=== PATIENT | male | born 1980 | race Caucasian/White ===

== ENCOUNTER → 2016-08-30 | Outpatient (CLI) | payer OTHER ==
[~2016-08-30] MED LIST: ALBU18002 INH; ASPI81TA28 PO; ATOR-22 PO; BUPR-79 PO; BUPR100T8 PO; CANA1TAB5 PO; CITA40TA4 PO; HALO2TAB PO; INSDGIPEN SC; INSDGIPEN SQ; INSU3INJ3 SQ; LISI20TA3 PO; NVLG SQ; TOPI100T20 PO; TRAZ100T29 PO; TRAZ50TA35 PO; [UNRECOGNIZED DRUG - REMARK] PO
[2016-08-30 19:07] LABS: ALT/SGPT 53 U/L (12-78); AST/SGOT 17 U/L (15-37); BLOOD UREA NITROGEN 13 mg/dl (7-18); BUN/CREATININE RATIO 12.5 (10-20); CALCIUM 8.4 mg/dl (8.5-10.1); CARBON DIOXIDE 26 mmol/L (21-32); CHLORIDE 102 mmol/L (98-107); GLUCOSE 240 mg/dl (70-99); POTASSIUM 4.3 mmol/L (3.5-5.1); SODIUM 136 mmol/L (136-145)
[2016-08-30 19:18] LABS: ALB/GLOB RATIO 0.9 (0.9-2); ALKALINE PHOSPHATASE 86 U/L (45-117); CHOLESTEROL 187 mg/dl (0-200); CHOLESTEROL/HDL RATIO 5.2; HDL CHOLESTEROL 36 mg/dl; LDL CHOLESTEROL CALCULATED 108 mg/dl; TRIGLYCERIDES 213 mg/dl (0-150); VERY LOW DENSITY LIPOPROT CALC 43 mg/dl
[2016-08-31 06:41] LABS: ESTIMATED AVERAGE GLUCOSE 226 mg/dl; HA1C FLAG Normal (Normal)
== END | disposition home or self-care (01) ==
LOC: C.LABPVFM 11:43
PROVIDERS: ATTEND Nurse Practitioner Family
DX: E11.9 Type 2 diabetes mellitus without complications (principal); I10 Essential (primary) hypertension; E78.5 Hyperlipidemia, unspecified

== ENCOUNTER 2016-10-01 02:35 | Emergency (ER) | payer OTHER ==
[~2016-10-01] VITALS: Ht 185.4 cm; Wt 200.0 kg
[~2016-10-01 02:35] MED LIST changes: -ASPI81TA28 PO; -ATOR-22 PO; -BUPR100T8 PO; -HALO2TAB PO; -INSDGIPEN SC; -INSU3INJ3 SQ; -LISI20TA3 PO; -TOPI100T20 PO; -TRAZ100T29 PO; -[UNRECOGNIZED DRUG - REMARK] PO
[2016-10-01 02:36] VITALS: BP 154/82; PULSE 97; TEMP 36.4; O2SAT 94; Ht 185.4 cm; Wt 200.0 kg
[2016-10-01] MEDS ORDERED: BACITRACIN OINT 15 GM TUBE EXT ONE (03:00)
--- NOTE | 2016-10-01 05:28 | EMERGENCY ROOM VISIT NOTE ---
History First contact with patient: 02:44 Chief Complaint: HAND PAIN/INJURY Stated Complaint: SOMETHING WRONG WITH HANDS History of Present Illness The patient is a 35 year old male who presents to the Emergency Room with complaints of pain of his hands for the past week. The patient states his hands feel dry and have been cracking. He has not had fever or chills. No drainage or discharge. The patient is currently living at a local homeless longterm, but he does have a car, and will occasionally sleep in his vehicle. He has not done anything himself for his symptoms. He does have a primary care physician, but does not have an appointment yet. He rates his discomfort a / 10. Review of Systems More than 10 systems were reviewed and otherwise negative with the exception of history of present illness. Past Medical/Surgical History Medical Problems: (1) DEPRESSIVE DISORDER NEC (2) DIAB MARGAUX WO COMPL, TYPE II OR UNSPEC TYPE, NOT UNCNTRLD (3) HYPERTENSION NOS (4) Hypothyroidism (5) MORBID OBESITY (6) Sleep apnea (7) URIN TRACT INFECTION NOS Family History Depression Social History Smoking Status: Current Every Day Smoker Alcohol Use: none Drug Use: none Marital Status: Housing Status: lives alone Occupation Status: unemployed Current/Historical Medications Scheduled Atorvastatin (Lipitor), 20 MG PO DAILY Bupropion (Wellbutrin Sr), 150 MG PO DAILY Canagliflozin-Metformin HCl (Invokamet 50-500 mg), 1 TAB PO DAILY Citalopram (Citalopram Hydrobromide), 40 MG PO DAILY Insulin Aspart (Novolog), 20 UNITS SQ AC Insulin Glargine (Lantus Solostar), 20 UNITS SQ BID Lisinopril (Prinivil), 20 MG PO DAILY Topiramate (Topamax), 100 MG PO BID Scheduled PRN Albuterol Sulfate (Proair Respiclick), 2 PUFFS INH Q4H PRN for SOB/Wheezing Trazodone Hcl (Trazodone), 50 MG PO HS PRN for Insomnia Allergies Coded Allergies: Penicillins (Verified Allergy, Unknown, 10/01/16) Physical Exam Vital Signs Date Time Temp Pulse Resp B/P Pulse Ox O2 Delivery O2 Flow Rate FiO2 10/01/16 02:36 36.4 97 18 154/82 94 Room Air Pain Rating (0-10): 0 Physical Exam VITALS: Vitals are noted on the nurse's note and reviewed by myself. Vital signs stable. GENERAL: Well-developed, well-nourished, obese white male, who is in no acute distress and resting comfortably. Patient is cooperative with the examination. HEAD: Normocephalic atraumatic. HEART: Regular rate and rhythm without murmurs gallops or rubs. LUNGS: Clear to auscultation bilaterally without wheezes, rales or rhonchi. No retractions or accessory muscle use. SKIN: The skin along the posterior aspect of both hands is dry and with multiple excoriations. There is no obvious drainage or discharge. No cellulitis. No burrows or tunnels. Palms are without significant findings. No foreign body or evidence of infection between the fingers. No foreign bodies. Medical Decision & Procedures Medications Administered Medications (Trade) Dose Ordered Sig/Paulette Route Start Time Stop Time Status Last Admin Dose Admin Bacitracin (Bacitracin Oint) 1 appln NOW ONCE EXT 10/01/16 03:00 10/01/16 03:01 DC 10/01/16 03:00 1 APPLN ED Course Physical exam and history were performed. Nursing notes and EMR were reviewed. Patient appears to have hand pain for the past week. On examination the patient 's hands are dry, but are without other significant findings. The patient will be given bacitracin ointment here, as well as instructions to use this for the next several days. I do recommend he follow with his primary care physician for further care and management. The patient is homeless, and I did offer him case management services, but he declined. The patient has a safe place to stay at the longterm, and is very comfortable with going home. This seems reasonable and the patient was otherwise invited back to the ER with any new, worsening, or concerning symptoms. The chart was completed utilizing [employer] Speech Voice Recognition Software. Grammatical errors, random word insertions, pronoun errors, and incomplete sentences are an occasional consequence of this system due to software limitations, ambient noise, and hardware issues. Any formal questions or concerns about the content, text, or information contained within the body of this dictation should be directly addressed to the provider for clarification. . Medical Decision Differential diagnosis includes, but is not limited to: Cellulitis, abscess, scabies, infection, dry hands, and others Impression Primary Impression: Hand pain Departure Information Dispostion Home / Self-Care Condition GOOD Forms HOME CARE DOCUMENTATION FORM, IMPORTANT VISIT INFORMATION Patient Instructions My [facility] Additional Instructions You were seen and evaluated today on an emergency basis only. This is not a substitute for, or an effort to provide, complete comprehensive medical care. It is not possible to recognize and treat all injuries or illnesses in a single emergency department visit. For this reason it is recommended that you followup with your primary care physician next week for ongoing care and evaluation. Apply bacitracin ointment 2-3 times daily to your hands for additional relief of symptoms. You are welcome to return to the emergency department anytime with new, worsening, or concerning symptoms.
[2016-10-20] MEDS ORDERED: INSDGIPEN SQ (11:49)
[2017-01-26] MEDS ORDERED: TOPI100T20 PO (07:17)
[2017-01-26] MEDS ORDERED: LISI20TA3 PO (07:18)
[2017-01-26] MEDS ORDERED: ATOR-22 PO (07:24)
[2017-01-26] MEDS ORDERED: TRAZ100T29 PO (08:33)
[2017-01-26] MEDS ORDERED: BUPR100T8 PO (08:33)
== END 2016-10-01 03:20 | disposition home or self-care (01) ==
LOC: C.EDB 02:36
DX: M79.641 Pain in right hand (principal); M79.642 Pain in left hand; F17.200 Nicotine dependence, unspecified, uncomplicated; F32.9 Major depressive disorder, single episode, unspecified; E11.9 Type 2 diabetes mellitus without complications; I10 Essential (primary) hypertension; E03.9 Hypothyroidism, unspecified; E66.01 Morbid (severe) obesity due to excess calories; G47.30 Sleep apnea, unspecified; Z79.4 Long term (current) use of insulin

== ENCOUNTER 2016-10-19 08:00 | Inpatient (IN) | payer OTHER ==
[~2016-10-19] VITALS: Ht 188 cm; Wt 197.7 kg
[~2016-10-19 08:00] MED LIST changes: +INSULIN ASPART 100 UNITS/ML 3 ML PEN SC ONE
[2016-10-19] MEDS ORDERED: SODIUM CHLORIDE 0.9% 1000ML 1,000 ML IV STA (08:23)
--- NOTE | 2016-10-19 08:28 | EMERGENCY ROOM VISIT NOTE ---
History First contact with patient: : Chief Complaint: ILLNESS Stated Complaint: SORE THROAT, PAIN IN UPPER LEG, WEAKNESS History of Present Illness The patient is a 35 year old male who presents to the Emergency Room with complaints of sore throat and generalized malaise. The patient states that yesterday he noticed a sore throat that is worse with swallowing. He reports a dry cough. The patient states he feels generalized malaise and weakness. He also complains of left medial thigh pain. The patient has been staying at [facility] and is currently homeless. The patient states he saw his family doctor on Saturday and he states that his blood sugar was 424. He did not have any changes made in his medications. The patient denies any fever, neck pain, neck stiffness, headache. He denies any pain in his chest or trouble breathing. He states he has abdominal pain, but denies nausea or vomiting. The patient states he feels as though he needs to be admitted to the hospital. He states that he is staying at a homeless [facility] but needs help with housing. He denies any suicidal or homicidal ideation. He states he is taking his medications. He does not feel he needs an evaluation with mental health. Review of Systems A 10 system review of systems was completed with positives and pertinent negatives listed in the HPI. Past Medical/Surgical History Medical Problems: (1) DEPRESSIVE DISORDER NEC (2) DIAB MARGAUX WO COMPL, TYPE II OR UNSPEC TYPE, NOT UNCNTRLD (3) DKA, type 2 (4) HYPERTENSION NOS (5) Hypothyroidism (6) MORBID OBESITY (7) Sleep apnea (8) URIN TRACT INFECTION NOS Family History Depression Social History Smoking Status: Current Every Day Smoker Alcohol Use: none Drug Use: none Marital Status: Housing Status: lives alone Occupation Status: unemployed Current/Historical Medications Scheduled Atorvastatin (Lipitor), 20 MG PO DAILY Bupropion (Wellbutrin Sr), 100 MG PO BID Canagliflozin-Metformin HCl (Invokamet 50-500 mg), 1 TAB PO DAILY Citalopram (Citalopram Hydrobromide), 40 MG PO DAILY Insulin Aspart (Novolog), 26 UNITS SQ AC Insulin Glargine (Lantus Solostar), 20 UNITS SQ BID Lisinopril (Prinivil), 20 MG PO DAILY Topiramate (Topamax), 100 MG PO BID Scheduled PRN Albuterol Sulfate (Proair Respiclick), 2 PUFFS INH Q4H PRN for SOB/Wheezing Trazodone Hcl (Trazodone), 100 MG PO HS PRN for Insomnia Allergies Coded Allergies: Penicillins (Verified Allergy, Unknown, 10/01/16) Physical Exam Vital Signs Date Time Temp Pulse Resp B/P Pulse Ox O2 Delivery O2 Flow Rate FiO2 10/19/16 11:20 74 18 142/81 95 Room Air 10/19/16 10:07 71 18 124/81 93 Room Air 10/19/16 08:10 36.9 88 18 128/86 93 Room Air Physical Exam VITALS: Vitals are noted on the nurse's note and reviewed by myself. Vital signs stable. The patient is afebrile. GENERAL: This is a 35-year-old male, obese and unkempt, in no acute distress, nondiaphoretic, well-developed well-nourished. SKIN: The skin was without rashes, erythema, edema, or bruising. There is no tenting of the skin. Capillary reflex less than 2 seconds. HEAD: Normocephalic atraumatic. EARS: External auditory canals clear, tympanic membranes pearly cotto without erythema or effusion bilaterally. EYES: Pupils equal round and reactive to light and accommodation. Conjunctivae without injection, sclerae without icterus. Extraocular movements intact. NOSE: Patent, turbinates without inflammation or discharge. MOUTH: Mucous membranes moist. Tonsils are bilaterally enlarged. Pharynx without erythema or exudate. Uvula midline. Airway patent. Tongue does not deviate. NECK: Supple without nuchal rigidity. No lymphadenopathy. No thyromegaly. Cervical spine is nontender. No JVD. HEART: Regular rate and rhythm without murmurs gallops or rubs. LUNGS: Clear to auscultation bilaterally without wheezes, rales or rhonchi. No retractions or accessory muscle use. ABDOMEN: Positive bowel sounds x 4.Soft, nontender, without masses or organomegaly. MUSCULOSKELETAL: No muscle atrophy, erythema, or edema noted. Full range of motion without joint tenderness in all extremities. Normal gait. Strength 5/5 throughout. NEURO: Patient was alert and oriented to person place and time. No focal neurological deficits. Medical Decision & Procedures ER Provider Diagnostic Interpretation: CHEST 2 VIEWS ROUTINE CLINICAL HISTORY: Cough. COMPARISON STUDY: Chest radiograph January 13, 2013. FINDINGS: Lung volumes are normal. Lungs are clear. No pneumothorax or pleural effusion is present. Cardiac size is normal. Mediastinal contours are normal. There is no evidence of pulmonary edema. IMPRESSION: No acute cardiopulmonary findings. LEFT LOWER EXTREMITY VENOUS DOPPLER CLINICAL HISTORY: Left leg pain. COMPARISON STUDY: Left lower extremity venous Doppler August 26, 2008. TECHNIQUE: Sonography of the deep venous system of the left lower extremity was performed. Compression and augmentation were evaluated. FINDINGS: This exam was compromised by suboptimal penetration. The common femoral, superficial femoral and popliteal veins were compressible. Augmentation was normal. Flow was shown within the deep calf vessels. IMPRESSION: Study compromised by suboptimal penetration but no evidence of deep venous thrombus within the left lower extremity. Laboratory Results 10/19/16 08:40 Red Blood Count 5.44, Mean Corpuscular Volume 83.5, Mean Corpuscular Hemoglobin 29.8, Mean Corpuscular Hemoglobin Concent 35.7, Mean Platelet Volume 10.0, Neutrophils (%) (Auto) 62.8, Lymphocytes (%) (Auto) 29.8, Monocytes (%) (Auto) 5.7, Eosinophils (%) (Auto) 1.0, Basophils (%) (Auto) 0.4, Neutrophils # (Auto) 4.63, Lymphocytes # (Auto) 2.19, Monocytes # (Auto) 0.42, Eosinophils # (Auto) 0.07, Basophils # (Auto) 0.03 Test 10/19/16 08:40 10/19/16 08:50 10/19/16 09:40 White Blood Count 7.36 K/uL (4.8-10.8) Red Blood Count 5.44 M/uL (4.7-6.1) Hemoglobin 16.2 g/dL (14.0-18.0) Hematocrit 45.4 % (42-52) Mean Corpuscular Volume 83.5 fL (80-100) Mean Corpuscular Hemoglobin 29.8 pg (25-34) Mean Corpuscular Hemoglobin Concent 35.7 g/dl (32-36) Platelet Count 162 K/uL (130-400) Mean Platelet Volume 10.0 fL (7.4-10.4) Neutrophils (%) (Auto) 62.8 % Lymphocytes (%) (Auto) 29.8 % Monocytes (%) (Auto) 5.7 % Eosinophils (%) (Auto) 1.0 % Basophils (%) (Auto) 0.4 % Neutrophils # (Auto) 4.63 K/uL (1.4-6.5) Lymphocytes # (Auto) 2.19 K/uL (1.2-3.4) Monocytes # (Auto) 0.42 K/uL (0.11-0.59) Eosinophils # (Auto) 0.07 K/uL (0-0.5) Basophils # (Auto) 0.03 K/uL (0-0.2) RDW Standard Deviation 42.7 fL (36.4-46.3) RDW Coefficient of Variation 14.0 % (11.5-14.5) Immature Granulocyte % (Auto) 0.3 % Immature Granulocyte # (Auto) 0.02 K/uL (0.00-0.02) Total Bilirubin 0.5 mg/dl (0.2-1) Aspartate Amino Transf (AST/SGOT) 35 U/L (15-37) Alanine Aminotransferase (ALT/SGPT) 80 U/L (12-78) Alkaline Phosphatase 82 U/L (45-117) Troponin I < 0.015 ng/ml (0-0.045) Total Protein 7.2 gm/dl (6.4-8.2) Albumin 3.5 gm/dl (3.4-5.0) Globulin 3.7 gm/dl (2.5-4.0) Albumin/Globulin Ratio 0.9 (0.9-2) Lipase 1385 U/L (73-393) Chemistry Specimen Hemolysis Influenza Type A Antigen Neg for Influ A (NEG) Influenza Type B Antigen Neg for Influ B (NEG) Urine Color YELLOW Urine Appearance CLEAR (CLEAR) Urine pH 6.5 (4.5-7.5) Urine Specific [place] 1.034 (1.000-1.030) Urine Protein NEG (NEG) Urine Glucose (UA) 3+ (NEG) Urine Ketones NEG (NEG) Urine Occult Blood NEG (NEG) Urine Nitrite NEG (NEG) Urine Bilirubin NEG (NEG) Urine Urobilinogen NEG (NEG) Urine Leukocyte Esterase NEG (NEG) Prothrombin Time 9.6 SECONDS (9.0-12.0) Prothromb Time International Ratio 0.9 (0.9-1.1) Medications Administered Medications (Trade) Dose Ordered Sig/Paulette Route Start Time Stop Time Status Last Admin Dose Admin Sodium Chloride (Nss 1000ml) 1,000 ml @ 999 mls/hr Q1H1M STAT IV 10/19/16 08:23 10/19/16 09:23 DC 10/19/16 08:53 999 MLS/HR Insulin Human Regular (novoLIN-R U-100 PER UNIT) 5 units NOW STAT IV 10/19/16 08:44 10/19/16 08:46 DC 10/19/16 08:57 5 UNITS Procedure The patient was monitored on a ekg monitor. They maintained a normal sinus rhythm without ectopy. ED Course The patient was seen and examined. Previous visits were reviewed. The patient does not have a fever or leukocytosis. He does not have any significant electrolyte abnormalities. His glucose was elevated at 436. His anion gap was 12. His carbon dioxide was within normal limits. ALT was 80. Lipase was elevated at 1385. Beta hydroxybutyric acid was elevated at 3.16. Urinalysis reveals glucosuria. Flu was negative. Strep was negative. Chest x-ray was negative for acute findings Ultrasound of the left lower extremity was negative for DVT The patient was given 5 units IV insulin and his glucose slightly improved He was hydrated with normal saline 1 L The patient presents with multiple complaints. He reports chronic abdominal pain. He reports generalized fatigue and malaise. He was found to have pancreatitis with an elevated lipase. He is also hyperglycemic with positive serum ketones. The patient would benefit from further evaluation and management in the hospital. I discussed the case with the [facility] hospitalist service and they will evaluate the patient. The patient was also seen and examined by who agrees with the assessment and treatment plan. Medical Decision DIFFERENTIAL DIAGNOSIS: Hepatitis, cholecystitis, cholangitis, biliary colic, pancreatitis, pneumonia, subdiaphragmatic abscess, appendicitis, inguinal hernia , nephrolithiasis, inflammatory bowel disease, mesenteric adenitis, peptic ulcer disease, GERD, gastritis, pancreatitis, myocardial infarction, pericarditis, ruptured aortic aneurysm, appendicitis, gastroenteritis, bowel obstruction, splenic infarct, diverticulitis, mesenteric ischemia, metabolic, peritonitis, among others. Impression Primary Impression: Hyperglycemia Additional Impression: Pancreatitis Departure Information Referrals Chiquis Roche (PCP) Patient Instructions My [facility] Problem Qualifiers
[2016-10-19] MEDS ORDERED: NovoLIN-R INSULIN PER UNIT CHARGE IV STA (08:44)
[2016-10-19 08:52] LABS: BASO % 0.4 %; BASO ABS # 0.03 K/uL (0-0.2); COMPLETE YES; HEMATOCRIT 45.4 % (42-52); IG% 0.3 %; LYMPH % 29.8 %; LYMPH ABS # 2.19 K/uL (1.2-3.4); MEAN CELL VOLUME 83.5 fL (80-100); MEAN CORPUSCULAR HEMOGLOBIN 29.8 pg (25-34); MEAN CORPUSCULAR HGB CONC 35.7 g/dl (32-36); MONO % 5.7 %; NEUT % 62.8 %; PLATELET COUNT 162 K/uL (130-400); RED BLOOD COUNT 5.44 M/uL (4.7-6.1); WHITE BLOOD COUNT 7.36 K/uL (4.8-10.8)
[2016-10-19 09:12] LABS: MANUAL MICROSCOPIC REQUIRED? NO; REVIEW REQ? NO; URINE APPEARANCE CLEAR (CLEAR); URINE BILIRUBIN NEG (NEG); URINE COLOR YELLOW; URINE NITRITE NEG (NEG); URINE PH 6.5 (4.5-7.5); URINE SPECIFIC GRAVITY 1.034 (1.000-1.030); UROBILINOGEN NEG (NEG); ZZUR CULT IF INDIC CLEAN CATCH NO
[2016-10-19 09:16] LABS: ALKALINE PHOSPHATASE 82 U/L (45-117); ALT/SGPT 80 U/L (12-78); AST/SGOT 35 U/L (15-37); BLOOD UREA NITROGEN 15 mg/dl (7-18); BUN/CREATININE RATIO 12.7 (10-20); CALCIUM 8.4 mg/dl (8.5-10.1); CARBON DIOXIDE 22 mmol/L (21-32); CHLORIDE 98 mmol/L (98-107); GLUCOSE 456 mg/dl (70-99); POTASSIUM 4.5 mmol/L (3.5-5.1); SODIUM 132 mmol/L (136-145)
[2016-10-19 09:17] LABS: ALB/GLOB RATIO 0.9 (0.9-2)
[2016-10-19 09:30] LABS: BETA-HYDROXYBUTYRATE 3.16 mg/dL (0.2-2.81)
--- NOTE | 2016-10-19 09:30 | DIAGNOSTIC IMAGING REPORT ---
CHEST 2 VIEWS ROUTINE CLINICAL HISTORY: Cough. COMPARISON STUDY: Chest radiograph January 13, 2013. FINDINGS: Lung volumes are normal. Lungs are clear. No pneumothorax or pleural effusion is present. Cardiac size is normal. Mediastinal contours are normal. There is no evidence of pulmonary edema. IMPRESSION: No acute cardiopulmonary findings. Electronically signed by: Aris Barton M.D. 10/19/2016 9:29 AM Dictated Date/Time: 10/19/2016 9:28 AM
[2016-10-19] MEDS ORDERED: TRAZODONE HCL 100 MG TAB PO PRN (12:00)
[2016-10-19] MEDS ORDERED: ONDANSETRON INJ 2 MG/ML 2 ML VIAL IV PRN (12:00)
[2016-10-19] MEDS ORDERED: HydrALAZINE HCL 20 MG/ML VIAL IV. PRN (12:00)
[2016-10-19] MEDS ORDERED: MODERATE STRESS LEVEL ONE (12:00)
[2016-10-19] MEDS ORDERED: ACETAMINOPHEN 325 MG TAB PO PRN (12:00)
[2016-10-19] MEDS ORDERED: DKA GOAL RANGE 150-250 mg/dl 1 EA ONE (12:00)
--- NOTE | 2016-10-19 12:00 | DIAGNOSTIC IMAGING REPORT ---
LEFT LOWER EXTREMITY VENOUS DOPPLER CLINICAL HISTORY: Left leg pain. COMPARISON STUDY: Left lower extremity venous Doppler August 26, 2008. TECHNIQUE: Sonography of the deep venous system of the left lower extremity was performed. Compression and augmentation were evaluated. FINDINGS: This exam was compromised by suboptimal penetration. The common femoral, superficial femoral and popliteal veins were compressible. Augmentation was normal. Flow was shown within the deep calf vessels. IMPRESSION: Study compromised by suboptimal penetration but no evidence of deep venous thrombus within the left lower extremity. Electronically signed by: Aris Barton M.D. 10/19/2016 11:59 AM Dictated Date/Time: 10/19/2016 11:58 AM
[2016-10-19] MEDS ORDERED: INSULIN IV INFUSION PROTOCOL SCH (12:15)
[2016-10-19] MEDS ORDERED: OPTIRAY 320 IV PRN (12:30)
--- NOTE | 2016-10-19 12:47 | History and Physical ---
History & Physical Date & Time of Service: Oct 19, 2016 at 11:57 Chief Complaint: Sore Throat, Pain In Upper Leg, Weakness Primary Care Physician: Chiquis Roche History of Present Illness Source: patient, hospital records This patient is a 35-year-old male with a history of morbid obesity and type 2 diabetes a presents emergency department complaining of generalized weakness, malaise, sore throat and dry cough. The patient saw his primary care physician on Saturday. His blood sugar was severely elevated in the 400s. The patient reports taking his medications as directed however he is recently homeless and is living at a homeless long term. He is going through divorce with his . He denies any fever or chills. No nausea or vomiting. He denies any chest pain or pressure. No shortness of breath. He does report abdominal pain in the left upper to mid abdomen. He reports this has been intermittent over the last several years. He denies any history of pancreatitis. His lipase is found to be significantly elevated in the ED at 1385. He denies any significant alcohol intake. The patient also admits to constipation. Last bowel movement was 2 days ago. The patient is also complaining of upper left thigh pain. He denies any injury. He is unsure of how long it has been going on. Patient is a poor historian. The HPI is limited. Past Medical/Surgical History Medical Problems: (1) DEPRESSIVE DISORDER NEC Status: Chronic (2) DIAB MARGAUX WO COMPL, TYPE II OR UNSPEC TYPE, NOT UNCNTRLD Status: Chronic (3) HYPERTENSION NOS Status: Resolved (4) Hypothyroidism Status: Resolved (5) MORBID OBESITY Status: Chronic (6) Sleep apnea Status: Chronic (7) URIN TRACT INFECTION NOS Status: Resolved Family History Depression Social History Smoking Status: Current Every Day Smoker Alcohol Use: occasionally Drug Use: none Marital Status: other () Housing status: other (living at a homeless long term) Occupational Status: unemployed Immunizations History of Influenza Vaccine: Yes Influenza Vaccine Date: Jun 28, 2008 History of Tetanus Vaccine?: Yes History of Pneumococcal: No History of Hepatitis B Vaccine: Unknown Multi-Drug Resistant Organisms History of MDRO: No Allergies Coded Allergies: Penicillins (Verified Allergy, Unknown, 10/01/16) Home Medications Scheduled Atorvastatin (Lipitor), 20 MG PO DAILY Bupropion (Wellbutrin Sr), 100 MG PO BID Canagliflozin-Metformin HCl (Invokamet 50-500 mg), 1 TAB PO DAILY Citalopram (Citalopram Hydrobromide), 40 MG PO DAILY Insulin Aspart (Novolog), 26 UNITS SQ AC Insulin Glargine (Lantus Solostar), 20 UNITS SQ BID Lisinopril (Prinivil), 20 MG PO DAILY Topiramate (Topamax), 100 MG PO BID Scheduled PRN Albuterol Sulfate (Proair Respiclick), 2 PUFFS INH Q4H PRN for SOB/Wheezing Trazodone Hcl (Trazodone), 100 MG PO HS PRN for Insomnia Review of Systems 10 system review performed and negative unless noted in HPI or below Physical Exam Vital Signs Date Time Temp Pulse Resp B/P Pulse Ox O2 Delivery O2 Flow Rate FiO2 10/19/16 11:20 74 18 142/81 95 Room Air 10/19/16 10:07 71 18 124/81 93 Room Air 10/19/16 08:10 36.9 88 18 128/86 93 Room Air General Appearance: no apparent distress, + pertinent finding (morbidly obese) Head: normocephalic Eyes: PERRL, EOMI ENT: + pertinent finding (mild erythema noted over the tonsils. No exudate) Neck: no adenopathy, no JVD Respiratory/Chest: lungs clear Cardiovascular: regular rate, rhythm Abdomen/GI: soft, + pertinent finding (mild tenderness to palpation noted in the left upper quadrant. Bowel sounds present, but hypoactive.) Extremities/Musculoskelatal: no calf tenderness, no pedal edema Neurologic/Psych: no motor/sensory deficits, oriented x 3 Skin: warm/dry Diagnostics Laboratory Results 10/19/16 08:40 Red Blood Count 5.44, Mean Corpuscular Volume 83.5, Mean Corpuscular Hemoglobin 29.8, Mean Corpuscular Hemoglobin Concent 35.7, Mean Platelet Volume 10.0, Neutrophils (%) (Auto) 62.8, Lymphocytes (%) (Auto) 29.8, Monocytes (%) (Auto) 5.7, Eosinophils (%) (Auto) 1.0, Basophils (%) (Auto) 0.4, Neutrophils # (Auto) 4.63, Lymphocytes # (Auto) 2.19, Monocytes # (Auto) 0.42, Eosinophils # (Auto) 0.07, Basophils # (Auto) 0.03 Test 10/19/16 08:40 10/19/16 08:50 10/19/16 12:00 10/19/16 12:09 White Blood Count 7.36 K/uL (4.8-10.8) Red Blood Count 5.44 M/uL (4.7-6.1) Hemoglobin 16.2 g/dL (14.0-18.0) Hematocrit 45.4 % (42-52) Mean Corpuscular Volume 83.5 fL (80-100) Mean Corpuscular Hemoglobin 29.8 pg (25-34) Mean Corpuscular Hemoglobin Concent 35.7 g/dl (32-36) Platelet Count 162 K/uL (130-400) Mean Platelet Volume 10.0 fL (7.4-10.4) Neutrophils (%) (Auto) 62.8 % Lymphocytes (%) (Auto) 29.8 % Monocytes (%) (Auto) 5.7 % Eosinophils (%) (Auto) 1.0 % Basophils (%) (Auto) 0.4 % Neutrophils # (Auto) 4.63 K/uL (1.4-6.5) Lymphocytes # (Auto) 2.19 K/uL (1.2-3.4) Monocytes # (Auto) 0.42 K/uL (0.11-0.59) Eosinophils # (Auto) 0.07 K/uL (0-0.5) Basophils # (Auto) 0.03 K/uL (0-0.2) RDW Standard Deviation 42.7 fL (36.4-46.3) RDW Coefficient of Variation 14.0 % (11.5-14.5) Immature Granulocyte % (Auto) 0.3 % Immature Granulocyte # (Auto) 0.02 K/uL (0.00-0.02) Est Creatinine Clear Calc Drug Dose 156.2 ml/min Total Bilirubin 0.5 mg/dl (0.2-1) Aspartate Amino Transf (AST/SGOT) 35 U/L (15-37) Alanine Aminotransferase (ALT/SGPT) 80 U/L (12-78) Alkaline Phosphatase 82 U/L (45-117) Troponin I < 0.015 ng/ml (0-0.045) Total Protein 7.2 gm/dl (6.4-8.2) Albumin 3.5 gm/dl (3.4-5.0) Globulin 3.7 gm/dl (2.5-4.0) Albumin/Globulin Ratio 0.9 (0.9-2) Lipase 1385 U/L (73-393) Beta-Hydroxybutyric Acid 3.16 mg/dL (0.2-2.81) Chemistry Specimen Hemolysis Influenza Type A Antigen Neg for Influ A (NEG) Influenza Type B Antigen Neg for Influ B (NEG) Urine Color YELLOW Urine Appearance CLEAR (CLEAR) Urine pH 6.5 (4.5-7.5) Urine Specific [place] 1.034 (1.000-1.030) Urine Protein NEG (NEG) Urine Glucose (UA) 3+ (NEG) Urine Ketones NEG (NEG) Urine Occult Blood NEG (NEG) Urine Nitrite NEG (NEG) Urine Bilirubin NEG (NEG) Urine Urobilinogen NEG (NEG) Urine Leukocyte Esterase NEG (NEG) Test 10/19/16 12:19 10/19/16 12:39 Bedside Glucose 273 mg/dl (70-99) Results Past 24 Hours Test 10/19/16 08:28 10/19/16 08:40 10/19/16 08:50 10/19/16 10:06 Range/Units Bedside Glucose 436 370 70-99 mg/dl White Blood Count 7.36 4.8-10.8 K/uL Red Blood Count 5.44 4.7-6.1 M/uL Hemoglobin 16.2 14.0-18.0 g/dL Hematocrit 45.4 42-52 % Mean Corpuscular Volume 83.5 80-100 fL Mean Corpuscular Hemoglobin 29.8 25-34 pg Mean Corpuscular Hemoglobin Concent 35.7 32-36 g/dl Platelet Count 162 130-400 K/uL Mean Platelet Volume 10.0 7.4-10.4 fL Neutrophils (%) (Auto) 62.8 % Lymphocytes (%) (Auto) 29.8 % Monocytes (%) (Auto) 5.7 % Eosinophils (%) (Auto) 1.0 % Basophils (%) (Auto) 0.4 % Neutrophils # (Auto) 4.63 1.4-6.5 K/uL Lymphocytes # (Auto) 2.19 1.2-3.4 K/uL Monocytes # (Auto) 0.42 0.11-0.59 K/uL Eosinophils # (Auto) 0.07 0-0.5 K/uL Basophils # (Auto) 0.03 0-0.2 K/uL RDW Standard Deviation 42.7 36.4-46.3 fL RDW Coefficient of Variation 14.0 11.5-14.5 % Immature Granulocyte % (Auto) 0.3 % Immature Granulocyte # (Auto) 0.02 0.00-0.02 K/uL Sodium Level 132 136-145 mmol/L Potassium Level 4.5 3.5-5.1 mmol/L Chloride Level 98 98-107 mmol/L Carbon Dioxide Level 22 21-32 mmol/L Anion Gap 12.0 3-11 mmol/L Blood Urea Nitrogen 15 7-18 mg/dl Creatinine 1.20 0.60-1.40 mg/dl Est Creatinine Clear Calc Drug Dose 156.2 ml/min Estimated GFR () 89.0 Estimated GFR (Non- 76.8 BUN/Creatinine Ratio 12.7 10-20 Random Glucose 456 70-99 mg/dl Calcium Level 8.4 8.5-10.1 mg/dl Total Bilirubin 0.5 0.2-1 mg/dl Aspartate Amino Transf (AST/SGOT) 35 15-37 U/L Alanine Aminotransferase (ALT/SGPT) 80 12-78 U/L Alkaline Phosphatase 82 45-117 U/L Troponin I < 0.015 0-0.045 ng/ml Total Protein 7.2 6.4-8.2 gm/dl Albumin 3.5 3.4-5.0 gm/dl Globulin 3.7 2.5-4.0 gm/dl Albumin/Globulin Ratio 0.9 0.9-2 Lipase 1385 73-393 U/L Beta-Hydroxybutyric Acid 3.16 0.2-2.81 mg/dL Chemistry Specimen Hemolysis Influenza Type A Antigen Neg for Influ A NEG Influenza Type B Antigen Neg for Influ B NEG Urine Color YELLOW Urine Appearance CLEAR CLEAR Urine pH 6.5 4.5-7.5 Urine Specific [place] 1.034 1.000-1.030 Urine Protein NEG NEG Urine Glucose (UA) 3+ NEG Urine Ketones NEG NEG Urine Occult Blood NEG NEG Urine Nitrite NEG NEG Urine Bilirubin NEG NEG Urine Urobilinogen NEG NEG Urine Leukocyte Esterase NEG NEG Microbiology Results 10/19/16 Group A Streptococcus Screen - Final, Resulted SPECIMEN NEGATIVE FOR GROUP A BETA ST... 10/19/16 Group A Streptococcus Screen (ANNE MARIE), Resulted Pending CXR normal Impression Assessment and Plan 35-year-old male with a history of type 2 diabetes, morbid obesity presents emergency department with upper respiratory symptoms, malaise, abdominal pain and L upper leg pain. Workup in the emergency department reveals an elevated blood sugar at 456. Small anion gap noted at 12. Positive for ketones in the blood. Picture is consistent with mild DKA. Patient also has pancreatitis given an elevated lipase of 1385 DKA in the setting of a type II diabetic and pancreatitis-etiology unclear at this point -Admit to telemetry -Given additional normal saline bolus 1 L. Then convert to NS + 20 mEq KCl @ 150 cc/hr -Insulin gtt -Check ABG -PRP q 4 hr -HgbA1C -CT abd/pelvis-->r/o gallstones, pancreatitis pseudocyst/hemorrhagic pancreatitis -Check triglycerides -r/o other sources of infection: UA, Blood cx, lactic acid Sorethroat/dry cough-Flu neg. ? viral. No PNA on xray. Rapid strep neg L leg pain -f/u LLE US HTN -continue lisinopril 20 mg daily -Hydralazine 10 mg IV q 6 hr PRN Hypothyroidism-? not on meds -Check TSH Hyperlipidemia -Continue atorvastatin 20 mg daily Depression -Continue Citalopram 40 mg daily -Wellbutrin SR 100 mg BID DVT prophylaxis -Lovenox 40 mg subQ daily-->must f/u CT to r/o hemorrhage -TEDs SCDs CODE STATUS -LEVEL I FULL CODE Level of Care Telemetry Resuscitation Status FULL RESUSCITATION VTE Prophylaxis VTE Risk Assessment Done? Y/N: Yes Risk Level: Low Given or contraindicated: Enoxaparin (Lovenox)SQ, T.E.D. Stockings, SCD's
[2016-10-19 12:54] LABS: VEN BLOOD GAS BASE EXCESS 0.8 mmol/L
[2016-10-19] MEDS ORDERED: INSULIN ASPART 100 UNITS/ML 3 ML PEN SC SCH (13:00)
--- NOTE | 2016-10-19 13:01 | DIAGNOSTIC IMAGING REPORT ---
CT OF THE ABDOMEN AND PELVIS WITH CONTRAST CLINICAL HISTORY: Pancreatitis. Lower abdominal pain. COMPARISON STUDY: CT of the abdomen and pelvis March 13, 2013. TECHNIQUE: Following IV administration of 119 mL of Optiray-320, axial images of the abdomen and pelvis were obtained from the lung bases to the proximal femurs. Images were reviewed in the axial, sagittal, and coronal planes. IV contrast was administered without complication. CT DOSE: 1786.89 mGy.cm FINDINGS: Fatty infiltration of the liver is noted. The spleen, adrenal glands and kidneys are unremarkable. There is no hydronephrosis. There is no peripancreatic infiltration. There is no pericholecystic infiltration. There is no biliary or pancreatic ductal dilatation. This exam is compromised by quantum mottle artifact. There is no evidence for a bowel obstruction. The appendix is normal. There is a moderate amount stool within the colon. Skeletal structures are unremarkable. Note is made of a small fat-containing umbilical hernia. There is no ascites. IMPRESSION: 1. Normal CT appearance of the pancreas. This does not exclude the possibility of acute pancreatitis. 2. Fatty liver. 3. Normal appendix. 4. No bowel obstruction. Moderate amount of stool within the colon. Electronically signed by: Aris Barton M.D. 10/19/2016 12:59 PM Dictated Date/Time: 10/19/2016 12:53 PM
[2016-10-19 13:13] LABS: BUN/CREATININE RATIO 13.2 (10-20); CALCIUM 8.4 mg/dl (8.5-10.1); POTASSIUM 4.2 mmol/L (3.5-5.1)
[2016-10-19] MEDS ORDERED: DEXTROSE 50% 50 ML SYR IV PRN (13:15)
[2016-10-19] MEDS ORDERED: INSULIN HUMAN REGULAR IV BOLUS 5 UNIT in SYRINGE 0 ML IV SCH (13:15)
[2016-10-19] MEDS ORDERED: INSULIN REGULAR 250 UNITS in SODIUM CHLORIDE 0.9% 250ML 250 ML IV SCH (13:15)
[2016-10-19] MEDS ORDERED: GLUCOSE 10 TABS/TUBE PO PRN (13:15)
[2016-10-19] MEDS ORDERED: GLUCOSE 40% GEL 15 GM TUBE PO PRN (13:15)
[2016-10-19] MEDS ORDERED: GLUCAGON FOR INJ 1 MG VIAL SQ PRN (13:15)
[2016-10-19 13:24] LABS: BETA-HYDROXYBUTYRATE 4.03 mg/dL (0.2-2.81); THYROID STIMULATING HORMONE 2.71 uIu/ml (0.300-4.500)
[2016-10-19 13:30] VITALS: BP 141/76; PULSE 73; TEMP 36.9; O2SAT 95; Ht 188 cm; Wt 197.7 kg
[2016-10-19] MEDS ORDERED: SODIUM CHLORIDE 0.9% 1000ML 1,000 ML IV ONE (13:30)
[2016-10-19 13:58] LABS: INR 0.9 (0.9-1.1); PROTHROMBIN TIME (PATIENT) 9.6 SECONDS (9.0-12.0)
[2016-10-19] MEDS ORDERED: PIPERACILL/TAZOBAC IV 3.375 GM in DEXTROSE 5% 100ML 100 ML IV SCH (14:00)
[2016-10-19] MEDS ORDERED: PHARMACY GLYCEMIC MGMT CONSULT PRN (14:11)
[2016-10-19] MEDS ORDERED: NURSING VERBAL MED ORDER ONE (14:45)
[2016-10-19] MEDS ORDERED: METRONIDAZOLE 500 MG/ NSS IV SCH (15:00)
[2016-10-19] MEDS: NSS + 20MEQ KCL 1000ML 1,000 ML IV SCH ×2 (15:09→21:45)
--- NOTE | 2016-10-19 15:24 | Pharmacy Progress Note ---
Glycemic Control Intl Consult Date of Service Oct 19, 2016. Scope Glycemic Pharmacist consulted for glycemic control and to write orders per [facility] inpatient glycemic control protocol Objective Weight (Kilograms): 188.400 Accuchecks BSG (last 24hrs): Test 10/19/16 08:28 10/19/16 08:40 10/19/16 10:06 10/19/16 12:19 Bedside Glucose 436 mg/dl (70-99) 370 mg/dl (70-99) 273 mg/dl (70-99) Random Glucose 456 mg/dl (70-99) Test 10/19/16 12:35 10/19/16 13:25 Random Glucose 304 mg/dl (70-99) Bedside Glucose 244 mg/dl (70-99) Laboratory Data (last 24hrs) Test 10/19/16 08:40 10/19/16 12:35 Anion Gap 12.0 mmol/L 9.0 mmol/L BUN/Creatinine Ratio 12.7 13.2 Blood Urea Nitrogen 15 mg/dl 13 mg/dl Creatinine 1.20 mg/dl 1.00 mg/dl Potassium Level 4.5 mmol/L 4.2 mmol/L Sodium Level 132 mmol/L 136 mmol/L White Blood Count 7.36 K/uL Red Blood Count 5.44 M/uL Hemoglobin 16.2 g/dL Hematocrit 45.4 % Mean Corpuscular Volume 83.5 fL Mean Corpuscular Hemoglobin 29.8 pg Mean Corpuscular Hemoglobin Concent 35.7 g/dl Platelet Count 162 K/uL Mean Platelet Volume 10.0 fL Neutrophils (%) (Auto) 62.8 % Lymphocytes (%) (Auto) 29.8 % Monocytes (%) (Auto) 5.7 % Eosinophils (%) (Auto) 1.0 % Basophils (%) (Auto) 0.4 % Neutrophils # (Auto) 4.63 K/uL Lymphocytes # (Auto) 2.19 K/uL Monocytes # (Auto) 0.42 K/uL Eosinophils # (Auto) 0.07 K/uL Basophils # (Auto) 0.03 K/uL Recent Pertinent Medications Outpatient Anti-diabetic Regimen: * Invokamet 50/500mg po daily * Novolog 26 units SC AC * Lantus 20 units SC BID * A1c = 9.5 % on 08/30/16 Risk Factors for Insulin Resistance: * Infection: ciprofloxacin, metronidazole * Diet: T2DM Assessment & Plan ASSESSMENT: * ADA & AACE recommend a goal blood sugar range 140-180 mg/dl for the majority of critically ill & non-critically ill patients. However, more stringent targets may be selected in individual cases. * 35 yo morbidly obese homeless male admitted w URI, hyperglycemia * Was originally ordered insulin gtt, but this was not started as the patient responded well to an IV bolus of regular insulin alone * Will give a one-time dose of Lantus now at slightly higher than home dose as it's unclear if (and unlikely that) patient received AM dose of Lantus * Will continue Lantus based on BSG at/near home dose * Will order Novolog based on total daily dose as weight-based may be too aggressive for this patient 2nd morbid obesity. Will loosen carb ratio slightly as this, too, is aggressive * Will add overnight check PLAN FOR INPATIENT GLYCEMIC CONTROL: * Holding outpatient oral diabetes medications * Basal insulin with LANTUS 25 units SQ x1 then BID based on BSG * 10 units for BSG < 140 mg/dL * 20 units for BSG 140 mg/dL or greater * Correctional Insulin with NOVOLOG / REGULAR per scale ACHS or Q6hrs while NPO - additional check at 0200 * Goal Range: Low 140 mg/dL - High 180 mg/dL * Correction Factor: 15 mg/dL/unit * Nutritional / Prandial insulin per carb ratio of 1 unit per 6 grams CHO consumed * Please note that the plan above was derived based on current level of insulin resistance and hospital stress. These recommendations are appropriate for inpatient admission only. Plan of care upon discharge will need to be reassessed to avoid potential outpatient hypo/hyperglycemia. Thank you.
[2016-10-19 15:38] VITALS: BP 107/66; PULSE 75; TEMP 36.5; O2SAT 95
[2016-10-19] MEDS: ENOXAPARIN 40 MG/0.4 ML SYR SC SCH ×2 (15:45→23:22)
[2016-10-19] MEDS ORDERED: INSULIN GLARGINE SOLOSTAR 100 UNITS/ML 3 ML PEN SC ONE (16:00)
[2016-10-19] MEDS ORDERED: CIPROFLOXACIN 400MG / D5W IV SCH (16:00)
[2016-10-19 16:36] LABS: BUN/CREATININE RATIO 12.9 (10-20); CALCIUM 8.4 mg/dl (8.5-10.1); POTASSIUM 4.1 mmol/L (3.5-5.1)
[2016-10-19] MEDS: INSULIN ASPART 100 UNITS/ML 3 ML PEN SC SCH ×2 (17:07→21:07)
[2016-10-19 20:44] VITALS: BP 106/65; PULSE 75; TEMP 36.4; O2SAT 95
[2016-10-19 20:56] LABS: BUN/CREATININE RATIO 12.9 (10-20); CALCIUM 8.3 mg/dl (8.5-10.1); POTASSIUM 3.9 mmol/L (3.5-5.1)
[2016-10-19] MEDS: TOPIRAMATE 100 MG TAB PO SCH (20:57)
[2016-10-19] MEDS: BuPROPion SR 100 MG TABCR PO SCH (20:57)
[2016-10-19 23:53] VITALS: BP 127/84; PULSE 68; TEMP 36.7; O2SAT 97
[2016-10-20] MEDS ORDERED: AZITHROMYCIN 250 MG TAB PO SCH
[2016-10-20] MEDS: NSS + 20MEQ KCL 1000ML 1,000 ML IV SCH (01:09)
[2016-10-20] MEDS ORDERED: INSULIN ASPART 100 UNITS/ML 3 ML PEN SC ONE (02:00)
[2016-10-20 03:23] VITALS: BP 123/82; PULSE 69; TEMP 36.8; O2SAT 91
[2016-10-20 05:49] LABS: BASO % 0.3 %; BASO ABS # 0.02 K/uL (0-0.2); COMPLETE YES; EOS % 0.9 %; HEMATOCRIT 43.4 % (42-52); IG% 0.2 %; LYMPH % 44.1 %; LYMPH ABS # 2.83 K/uL (1.2-3.4); MEAN CELL VOLUME 85.3 fL (80-100); MEAN CORPUSCULAR HEMOGLOBIN 28.9 pg (25-34); MEAN CORPUSCULAR HGB CONC 33.9 g/dl (32-36); MEAN PLATELET VOLUME 9.9 fL (7.4-10.4); MONO % 5.5 %; PLATELET COUNT 154 K/uL (130-400); RED BLOOD COUNT 5.09 M/uL (4.7-6.1); WHITE BLOOD COUNT 6.42 K/uL (4.8-10.8)
[2016-10-20] MEDS: INSULIN ASPART 100 UNITS/ML 3 ML PEN SC SCH ×2 (07:00→11:00)
[2016-10-20 08:04] VITALS: BP 100/70; PULSE 71; TEMP 36.5; O2SAT 96
[2016-10-20] MEDS: BuPROPion SR 100 MG TABCR PO SCH (08:06)
[2016-10-20] MEDS: ENOXAPARIN 40 MG/0.4 ML SYR SC SCH (08:06)
[2016-10-20] MEDS: TOPIRAMATE 100 MG TAB PO SCH (08:06)
[2016-10-20] MEDS ORDERED: ATORVASTATIN 20 MG TAB PO SCH (09:00)
[2016-10-20] MEDS ORDERED: LISINOPRIL 20 MG TAB PO SCH (09:00)
[2016-10-20] MEDS ORDERED: CITALOPRAM 40 MG TAB PO SCH (09:00)
[2016-10-20] MEDS ORDERED: INSULIN GLARGINE SOLOSTAR 100 UNITS/ML 3 ML PEN SC SCH (09:00)
--- NOTE | 2016-10-20 11:33 | Pharmacy Progress Note ---
Glycemic Control: Progress Nt Date of Service Oct 20, 2016. Scope Glycemic Pharmacist consulted for glycemic control and to write orders per [facility] inpatient glycemic control protocol. Objective Accuchecks BSG (last 24hrs): Test 10/19/16 12:19 10/19/16 12:35 10/19/16 13:25 10/19/16 16:05 Bedside Glucose 273 mg/dl (70-99) 244 mg/dl (70-99) 234 mg/dl (70-99) Random Glucose 304 mg/dl (70-99) Test 10/19/16 16:14 10/19/16 20:25 10/19/16 21:03 10/20/16 01:27 Random Glucose 251 mg/dl (70-99) 224 mg/dl (70-99) Bedside Glucose 196 mg/dl (70-99) 198 mg/dl (70-99) Test 10/20/16 06:38 Bedside Glucose 215 mg/dl (70-99) Laboratory Data (last 24hrs) Test 10/19/16 12:35 10/19/16 16:14 10/19/16 20:25 10/20/16 05:15 Anion Gap 9.0 mmol/L 7.0 mmol/L 7.0 mmol/L BUN/Creatinine Ratio 13.2 12.9 12.9 Blood Urea Nitrogen 13 mg/dl 13 mg/dl 13 mg/dl Creatinine 1.00 mg/dl 1.00 mg/dl 1.00 mg/dl Potassium Level 4.2 mmol/L 4.1 mmol/L 3.9 mmol/L Sodium Level 136 mmol/L 136 mmol/L 137 mmol/L White Blood Count 6.42 K/uL Red Blood Count 5.09 M/uL Hemoglobin 14.7 g/dL Hematocrit 43.4 % Mean Corpuscular Volume 85.3 fL Mean Corpuscular Hemoglobin 28.9 pg Mean Corpuscular Hemoglobin Concent 33.9 g/dl Platelet Count 154 K/uL Mean Platelet Volume 9.9 fL Neutrophils (%) (Auto) 49.0 % Lymphocytes (%) (Auto) 44.1 % Monocytes (%) (Auto) 5.5 % Eosinophils (%) (Auto) 0.9 % Basophils (%) (Auto) 0.3 % Neutrophils # (Auto) 3.15 K/uL Lymphocytes # (Auto) 2.83 K/uL Monocytes # (Auto) 0.35 K/uL Eosinophils # (Auto) 0.06 K/uL Basophils # (Auto) 0.02 K/uL Recent Pertinent Medications Outpatient Anti-diabetic Regimen: * Invokamet 50/500mg po daily * Novolog 26 units SC AC * Lantus 20 units SC BID * A1c = 9.5 % on 08/30/16 The patient is currently receiving: * Basal insulin with LANTUS 25 units SQ x1 10/19 then BID based on BSG * 10 units for BSG < 140 mg/dL * 20 units for BSG 140 mg/dL or greater * Correctional Insulin with NOVOLOG per scale ACHS or Q6hrs while NPO - additional check at 0200 on 10/20 * Goal Range: Low 140 mg/dL - High 180 mg/dL * Correction Factor: 15 mg/dL/unit * Nutritional / Prandial insulin per carb ratio of 1 unit per 6 grams CHO consumed Risk Factors for Insulin Resistance: * Diet: T2DM Assessment & Plan ASSESSMENT: * ADA & AACE recommend a goal blood sugar range 140-180 mg/dl for the majority of critically ill & non-critically ill patients. However, more stringent targets may be selected in individual cases. 10/19/16 * 35 yo morbidly obese homeless male admitted w [facility], hyperglycemia * Was originally ordered insulin gtt, but this was not started as the patient responded well to an IV bolus of regular insulin alone * Will give a one-time dose of Lantus now at slightly higher than home dose as it's unclear if (and unlikely that) patient received AM dose of Lantus * Will continue Lantus based on BSG at/near home dose * Will order Novolog based on total daily dose as weight-based may be too aggressive for this patient 2nd morbid obesity. Will loosen carb ratio slightly as this, too, is aggressive * Will add overnight check 10/20/16 * AM fasting BSG elevated to 215 mg/dL. However, additional Lantus is scheduled to be administered this AM. Does not require change in orders. PLAN FOR INPATIENT GLYCEMIC CONTROL: * Holding outpatient oral diabetes medications * Basal insulin with LANTUS BID based on BSG * 10 units for BSG < 140 mg/dL * 20 units for BSG 140 mg/dL or greater * Correctional Insulin with NOVOLOG per scale ACHS or Q6hrs while NPO - additional check at 0200 * Goal Range: Low 140 mg/dL - High 180 mg/dL * Correction Factor: 15 mg/dL/unit * Nutritional / Prandial insulin per carb ratio of 1 unit per 6 grams CHO consumed * Please note that the plan above was derived based on current level of insulin resistance and hospital stress. These recommendations are appropriate for inpatient admission only. Plan of care upon discharge will need to be reassessed to avoid potential outpatient hypo/hyperglycemia. Thank you.
--- NOTE | 2016-10-20 11:46 | Discharge Instructions ---
Discharge Instructions Date of Service Oct 20, 2016. Admission Reason for Admission: Dka, Type 2 Discharge Discharge Diagnosis / Problem: severe hyperglycemia Discharge Goals Goal(s): Decrease discomfort, Improve function, Increase independence, Improve disease control, Improve nutritional status, Learn about illness, Diagnostic testing, Therapeutic intervention, Prevent Disease Progression, Specific goals Activity Recommendations Activity Limitations: resume your previous activity Lifting Limitations: none Exercise/Sports Limitations: none May Resume Sexual Activity: when tolerated . Instructions / Follow-Up Instructions / Follow-Up you have Hyperglycemia, you need to continue insulin as instructed you have mild pancreatitis, you was on medicine of Canaglifozin/metformin before this admission, I hold this medicine because this medicine may caused Pancreatitis, you should discuss this with your primary care physician - you need to follow up with your primary care physician in 3-5 days to further define care plan of your diabetics - take medication as instructed, never overdose or any misuse, or take with alcohol, because misuse of medicine may cause organ damage or , call your primary care physician if have questions of medicaitons. - call your primary care physician OR go to local emergency room if has any fever/chill, chest pain, shortness of breathing, nausea/vomiting/abdominal pain , facial droop/slurry speech/local weakness, or if has any questions. - fall precaution - diet as instructed - you should understand that it is important to follow up the above instruction , and "not following the above instruction" may cause delayed or missed care of your medical conditions which may cause permanent organ damage and even . Current Hospital Diet Patient's current hospital diet: Diabetes Type 2 Diet Discharge Diet Recommended Diet: Diabetes Type 2 Diet Pending Studies Studies pending at discharge: no Laboratory Results Hemoglobin A1c Test 08/30/16 11:50 Range/Units Estimated Average Glucose 226 mg/dl Hemoglobin A1c 9.5 H 4.5-5.6 % Lipid Panel Test 08/30/16 11:50 10/19/16 12:35 Range/Units Triglycerides Level 213 H 289 H 0-150 mg/dl Cholesterol Level 187 0-200 mg/dl HDL Cholesterol 36 mg/dl Cholesterol/HDL Ratio 5.2 LDL Cholesterol, Calculated 108 mg/dl Medical Emergencies . Who to Call and When: Medical Emergencies: If at any time you feel your situation is an emergency, please call 911 immediately. . Non-Emergent Contact Non-Emergency issues call your: Primary Care Provider . . "Provider Documentation" section prepared by Tal Alvarez. VTE Core Measure Inpt VTE Proph given/why not?: Enoxaparin (Lovenox)GREGG, Taye. Nacho, SCD's
[2016-10-20] MEDS ORDERED: INSDGIPEN SQ (11:49)
[2016-10-20 11:51] VITALS: BP 100/70; PULSE 71; TEMP 36.5; O2SAT 96
--- NOTE | 2016-10-20 12:03 | Discharge Summary ---
Discharge Summary Date of Service Oct 20, 2016. Discharge Summary Admission Date: Oct 19, 2016 at 11:57 Discharge Date: Oct 20, 2016 Discharge Disposition: Home Principal Diagnosis: Hyperglycemia, DMII Problems/Secondary Diagnoses: pancreatitis Immunizations: Have You Had Influenza Vaccine: Yes Influenza Vaccine Date: Jun 28, 2008 History of Tetanus Vaccine?: Yes History of Pneumococcal: No History of Hepatitis B Vaccine: Unknown Consultations: No Medication Reconciliation Continued Medications: Albuterol Sulfate (Proair Respiclick) 108 Mcg/Act Aer 2 PUFFS INH Q4H PRN for SOB/Wheezing Atorvastatin (Lipitor) 20 Mg Tab 20 MG PO DAILY Bupropion (Wellbutrin Sr) 100 Mg Ertab 100 MG PO BID, TAB Citalopram (Citalopram Hydrobromide) 40 Mg Tab 40 MG PO DAILY, TAB Insulin Aspart (Novolog) 100 Units/Ml Inj 26 UNITS SQ AC Insulin Glargine (Lantus Solostar) 100 Unit/Ml Inj 20 UNITS SQ BID for 30 Days (This prescription has been renewed) Lisinopril (Prinivil) 20 Mg Tab 20 MG PO DAILY, TAB Topiramate (Topamax) 100 Mg Tab 100 MG PO BID, TAB Trazodone Hcl (Trazodone) 100 Mg Tab 100 MG PO HS PRN for Insomnia, TAB Discontinued Medications: Canagliflozin-Metformin HCl (Invokamet 50-500 mg) 1 Tab Tab 1 TAB PO DAILY Discharge Exam Doing well, sitting up listening music, eating well, blood glucose better controlled, Review of Systems: Constitutional: No chills, No fatigue, No fever, No problem reported, No sweats, No weakness, No weight loss Eyes: No diplopia, No discharge, No eye pain, No problem reported, No redness, No worsening of vision ENT: No dental problems, No hearing loss, No nasal symptoms, No problem reported, No sore throat, No tinnitus, No trouble swallowing, No unusual epistaxis Respiratory: No cough, No dyspnea at rest, No dyspnea on exertion, No hemoptysis, No problem reported, No shortness of breath, No sputum, No wheezing Cardiovascular: No PND, No chest pain, No claudication, No edema, No orthopnea, No palpitations, No problem reported Abdomen: No GI bleeding, No constipation, No diarrhea, No nausea, No pain, No problem reported, No vomiting Musculoskeletal: No calf pain, No joint pain, No muscle pain, No problem reported, No swelling Genitourinary - Male: No dysuria, No hematuria, No impotence, No lesions, No penile discharge, No problem reported, No urinary frequency, No urinary hesitancy, No urinary incontinence, No urinary retention, No urinary urgency Neurologic: No balance problems, No memory loss, No numbness/tingling, No paralysis, No problem reported, No vertigo, No weakness Psychiatric: No anhedonism, No anxiety, No depression symptoms, No insomnia , No problem reported, No substance abuse Endocrine: No excessive thirst, No excessive urination, No fatigue, No problem reported Hematologic / Lymphatic: No abnormal bleeding/bruising, No clotting problems , No night sweats, No problem reported, No swollen lymph nodes Integumentary: No bleeding, No color change, No itch, No new/changing skin lesions, No problem reported, No rash Physical Exam: General Appearance: WD/WN, no apparent distress Eyes: normal inspection, PERRL, EOMI ENT: normal ENT inspection, hearing grossly normal, TMs normal, pharynx normal Neck: supple, no adenopathy, thyroid normal, no JVD Respiratory/Chest: chest non-tender, normal breath sounds, no respiratory distress, no accessory muscle use, + decreased breath sounds Cardiovascular: regular rate, rhythm, no edema, no gallop, no JVD, no murmur , normal peripheral pulses Abdomen / GI: normal bowel sounds, non tender, soft, no organomegaly, no pulsatile mass Extremities: normal inspection, no calf tenderness, normal capillary refill , no pedal edema, normal range of motion, + swelling (ankle trace edema) Neurologic/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: 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 as tested, no motor/sensory deficits , alert, normal mood/affect, normal reflexes, oriented x 3 Skin: normal color, warm/dry, no rash Hospital Course 35-year-old male with a history of type 2 diabetes admitted because of severe hyperglycemia Hyperglycemia, no DKA and no HONK with normal pH ABG and normal bicarb n BMP Possible pancreatitis or just dehydration morbid obesity Has been continue telemetry As being continue Continue IV Patient's blood glucose around 200 after arriving floor, , pH was normal, minimal anion gap, do not need Insulin gtt Patient continued doing well, tolerate diet blood glucose is around 200, his HgbA1C was ordered and not done today yet , last time checking was in August, is < 3 months, therefore for now just follow up with PCP to repeat HbA1c pharmacy consulted for diabetic blood glucose management -CT abd/pelvis-->r/o gallstones, pancreatitis pseudocyst/hemorrhagic pancreatitis, with mild elevated lipase, However patient general condition looks good no nausea vomiting, he reported hungry, , we started to diet after arriving floor, tolerated well Patient was on medicine of Canaglifozin/metformin before this admission, I hold this medicine because this medicine may caused Pancreatitis, PCP please follow-up, patient has an elevated lipase, could be from dehydration , could be from the medicine side effect, Planning to discharge home with Lantus 20 units twice a day, plus sliding scale , patient did report to me he preferred insulin pen. I did give him prescription, PCP please follow-up There was extensive discussion and counseling above the medicine compliant and diabetic treatment, hopefully patient will take advice and become more compliant. Hypernatremia hyperglycemia with elevated triglycerides, patient is on zocor, PCP please follow-up -r/o other sources of infection: UA, Blood cx, lactic acid, which was all unremarkable for now Sorethroat/dry cough-Flu neg. ? viral. No PNA on xray. Rapid strep neg L leg pain no DVT per ultrasound HTN Hypothyroidism-? not on meds Hyperlipidemia Depression Continue current medication DVT prophylaxis -Lovenox 40 mg subQ daily--> CODE STATUS Instructions / Follow-Up you have Hyperglycemia, you need to continue insulin as instructed you have mild pancreatitis, you was on medicine of Canaglifozin/metformin before this admission, I hold this medicine because this medicine may caused Pancreatitis, you should discuss this with your primary care physician - you need to follow up with your primary care physician in 3-5 days to further define care plan of your diabetics - take medication as instructed, never overdose or any misuse, or take with alcohol, because misuse of medicine may cause organ damage or , call your primary care physician if have questions of medicaitons. - call your primary care physician OR go to local emergency room if has any fever/chill, chest pain, shortness of breathing, nausea/vomiting/abdominal pain , facial droop/slurry speech/local weakness, or if has any questions. - fall precaution - diet as instructed - you should understand that it is important to follow up the above instruction , and "not following the above instruction" may cause delayed or missed care of your medical conditions which may cause permanent organ damage and even . Total Time Spent: Greater than 30 minutes This includes examination of the patient, discharge planning, medication reconciliation, and communication with other providers. Discharge Instructions Please refer to the electronic Patient Visit Report (Discharge Instructions) for additional information. Additional Copies To Chiquis Roche
[2016-10-20] MEDS ORDERED: NURSING VERBAL MED ORDER ONE (13:00)
[2016-10-20] MEDS ORDERED: AZITHROMYCIN 250 MG TAB PO ONE (13:15)
[2017-01-26] MEDS ORDERED: TOPI100T20 PO (07:17)
[2017-01-26] MEDS ORDERED: LISI20TA3 PO (07:18)
[2017-01-26] MEDS ORDERED: ATOR-22 PO (07:24)
[2017-01-26] MEDS ORDERED: BUPR100T8 PO (08:33)
[2017-01-26] MEDS ORDERED: TRAZ100T29 PO (08:33)
== END 2016-10-20 13:47 | disposition home or self-care (01) | DRG 637 ==
LOC: ENRESERVTM → ENRESERVDT → C.EDB 08:03 → C.2T 11:57
PROVIDERS: ADMIT Hospitalist; ATTEND Hospitalist
DX: E11.65 Type 2 diabetes mellitus with hyperglycemia (principal); K85.90 Acute pancreatitis without necrosis or infection, unspecified; Z68.43 Body mass index [BMI] 50.0-59.9, adult; E87.0 Hyperosmolality and hypernatremia; E86.0 Dehydration; J02.0 Streptococcal pharyngitis; R05 Cough; M79.652 Pain in left thigh; I10 Essential (primary) hypertension; E78.1 Pure hyperglyceridemia; E78.5 Hyperlipidemia, unspecified; E03.9 Hypothyroidism, unspecified; K59.00 Constipation, unspecified; F32.9 Major depressive disorder, single episode, unspecified; F17.200 Nicotine dependence, unspecified, uncomplicated; G47.30 Sleep apnea, unspecified; E66.09 Other obesity due to excess calories; Z59.0 Homelessness; Z79.84 Long term (current) use of oral hypoglycemic drugs; Z79.4 Long term (current) use of insulin; Z79.899 Other long term (current) drug therapy

== ENCOUNTER 2016-11-27 03:29 | Emergency (ER) | payer OTHER ==
[~2016-11-27 03:29] MED LIST changes: -BUPR-79 PO; -CANA1TAB5 PO; -INSULIN ASPART 100 UNITS/ML 3 ML PEN SC ONE; -NVLG SQ; -TRAZ50TA35 PO
[2016-11-27 03:36] VITALS: TEMP 37; Ht 188 cm
--- NOTE | 2016-11-27 04:02 | EMERGENCY ROOM VISIT NOTE ---
History Report prepared by Anabell: Clifton Chase Under the Supervision of: Dr. Tal Mayer M.D. First contact with patient: 03:46 Chief Complaint: MENTAL HEALTH EVALUATION Stated Complaint: DEPRESSION,DIZZY History of Present Illness The patient is a 35 year old male who presents to the Emergency Room for an acute mental health evaluation. The patient has been experiencing worsening depression over the past several days. The patient definitively states that he does not wish to commit suicide, although he has had vague thoughts. The patient is homeless and jobless which contributes to his depression. He recently checked out of [facility]. The patient is also depressed because he feels alone and feels like he is taken advantage of. His mother does live locally. He did have food from [employer] yesterday. He was brought to the ED by police. He denies drug or alcohol use. He denies hallucinations and homicidal ideations. The patient has history of sleep apnea. He is on Celexa, Topamax, and Trazodone. He has not been taking his medications for a few days because [facility]. Source of History: patient Onset: tonight Position: other (psyche) Quality: other (mental health evaluation) Timing: other (acute) Review of Systems See HPI for pertinent positives & negatives. A total of 10 systems reviewed and were otherwise negative. Past Medical & Surgical Medical Problems: (1) DEPRESSIVE DISORDER NEC (2) DIAB MARGAUX WO COMPL, TYPE II OR UNSPEC TYPE, NOT UNCNTRLD (3) DKA, type 2 (4) HYPERTENSION NOS (5) Hypothyroidism (6) MORBID OBESITY (7) Sleep apnea (8) URIN TRACT INFECTION NOS Family History Depression Social History Smoking Status: Current Every Day Smoker Alcohol Use: none Drug Use: none Marital Status: other Housing Status: lives alone Occupation Status: unemployed Current/Historical Medications Scheduled Atorvastatin (Lipitor), 20 MG PO DAILY Bupropion (Wellbutrin Sr), 100 MG PO BID Citalopram (Citalopram Hydrobromide), 40 MG PO DAILY Insulin Glargine (Lantus Solostar), 20 UNITS SC BID Lisinopril (Prinivil), 20 MG PO DAILY Topiramate (Topamax), 100 MG PO BID Scheduled PRN Albuterol Sulfate (Proair Respiclick), 2 PUFFS INH Q4H PRN for SOB/Wheezing Trazodone Hcl (Trazodone), 100 MG PO HS PRN for Insomnia Allergies Coded Allergies: Penicillins (Verified Allergy, Unknown, 11/27/16) Physical Exam Vital Signs Date Time Temp Pulse Resp B/P Pulse Ox O2 Delivery O2 Flow Rate FiO2 11/27/16 10:59 106 20 153/101 99 11/27/16 07:46 77 20 122/70 91 Room Air 11/27/16 05:36 104 18 129/78 97 Room Air 11/27/16 03:36 37.0 111 20 174/102 95 Room Air Physical Exam GENERAL: Patient is well appearing and in no acute distress. HEENT: No acute trauma, normocephalic atraumatic, mucous membranes moist, no nasal congestion, no scleral icterus. NECK: No stridor, no adenopathy, no meningismus, trachea is midline. LUNGS: No dyspnea. Clear to auscultation and equal bilaterally. No wheeze, no rhonchi. HEART: Regular rate and rhythm. No murmurs, rubs, gallops appreciated. ABDOMEN: Soft, nontender, bowel sounds positive, no masses appreciated, no peritonitis. BACK: No midline tenderness, no CVA tenderness EXTREMITIES: Normal motion all extremities, no cyanosis, no edema. NEUROLOGIC: Alert and oriented, no acute motor or sensory deficits, no focal weakness, cranial nerves grossly intact. SKIN: No rash, no jaundice, no diaphoresis. PSYCH: Denies suicidal plan nor ideation other than vague thoughts. Admits to depression, denies hallucinations. Medical Decision & Procedures Laboratory Results 11/27/16 04:18 Red Blood Count 5.63, Mean Corpuscular Volume 87.4, Mean Corpuscular Hemoglobin 30.7, Mean Corpuscular Hemoglobin Concent 35.2, Mean Platelet Volume 9.6, Neutrophils (%) (Auto) 73.1, Lymphocytes (%) (Auto) 20.8, Monocytes (%) (Auto) 5.1, Eosinophils (%) (Auto) 0.5, Basophils (%) (Auto) 0.2, Neutrophils # (Auto) 7.75, Lymphocytes # (Auto) 2.20, Monocytes # (Auto) 0.54, Eosinophils # (Auto) 0.05, Basophils # (Auto) 0.02 11/27/16 04:18 Test 11/27/16 04:05 11/27/16 04:18 11/27/16 08:22 Urine Color YELLOW Urine Appearance CLEAR (CLEAR) Urine pH 5.0 (4.5-7.5) Urine Specific [place] 1.041 (1.000-1.030) Urine Protein NEG (NEG) Urine Glucose (UA) 3+ (NEG) Urine Ketones 3+ (NEG) Urine Occult Blood NEG (NEG) Urine Nitrite NEG (NEG) Urine Bilirubin NEG (NEG) Urine Urobilinogen NEG (NEG) Urine Leukocyte Esterase NEG (NEG) Urine WBC (Auto) 5-10 /hpf (0-5) Urine RBC (Auto) 0-4 /hpf (0-4) Urine Hyaline Casts (Auto) 0 /lpf (0-5) Urine Epithelial Cells (Auto) 20-30 /lpf (0-5) Urine Bacteria (Auto) NEG (NEG) Urine Opiates Screen NEG (NEG) Urine Methadone, Qualitative NEG (NEG) Urine Barbiturates NEG (NEG) Urine Phencyclidine (PCP) Level NEG (NEG) Ur Amphetamine/Methamphetamine NEG (NEG) MDMA (Ecstasy) Screen POS (NEG) Urine Benzodiazepines Screen NEG (NEG) Urine Cocaine Metabolite NEG (NEG) Urine Marijuana (THC) NEG (NEG) White Blood Count 10.59 K/uL (4.8-10.8) Red Blood Count 5.63 M/uL (4.7-6.1) Hemoglobin 17.3 g/dL (14.0-18.0) Hematocrit 49.2 % (42-52) Mean Corpuscular Volume 87.4 fL (80-100) Mean Corpuscular Hemoglobin 30.7 pg (25-34) Mean Corpuscular Hemoglobin Concent 35.2 g/dl (32-36) Platelet Count 197 K/uL (130-400) Mean Platelet Volume 9.6 fL (7.4-10.4) Neutrophils (%) (Auto) 73.1 % Lymphocytes (%) (Auto) 20.8 % Monocytes (%) (Auto) 5.1 % Eosinophils (%) (Auto) 0.5 % Basophils (%) (Auto) 0.2 % Neutrophils # (Auto) 7.75 K/uL (1.4-6.5) Lymphocytes # (Auto) 2.20 K/uL (1.2-3.4) Monocytes # (Auto) 0.54 K/uL (0.11-0.59) Eosinophils # (Auto) 0.05 K/uL (0-0.5) Basophils # (Auto) 0.02 K/uL (0-0.2) RDW Standard Deviation 43.2 fL (36.4-46.3) RDW Coefficient of Variation 13.6 % (11.5-14.5) Immature Granulocyte % (Auto) 0.3 % Immature Granulocyte # (Auto) 0.03 K/uL (0.00-0.02) Anion Gap 10.0 mmol/L (3-11) Estimated GFR () 98.9 Estimated GFR (Non- 85.3 BUN/Creatinine Ratio 14.5 (10-20) Calcium Level 8.8 mg/dl (8.5-10.1) Total Bilirubin 1.0 mg/dl (0.2-1) Aspartate Amino Transf (AST/SGOT) 25 U/L (15-37) Alanine Aminotransferase (ALT/SGPT) 40 U/L (12-78) Alkaline Phosphatase 99 U/L (45-117) Total Protein 7.4 gm/dl (6.4-8.2) Albumin 3.8 gm/dl (3.4-5.0) Globulin 3.6 gm/dl (2.5-4.0) Albumin/Globulin Ratio 1.1 (0.9-2) Beta-Hydroxybutyric Acid 17.12 mg/dL (0.2-2.81) Thyroid Stimulating Hormone (TSH) 2.020 uIu/ml (0.300-4.500) Salicylates Level < 1.7 mg/dl (2.8-20) Acetaminophen Level < 2 ug/ml (10-30) Ethyl Alcohol mg/dL < 3.0 mg/dl (0-3) Bedside Glucose 194 mg/dl (70-99) Laboratory results as reviewed by me. Medications Administered Medications (Trade) Dose Ordered Sig/Paulette Route Start Time Stop Time Status Last Admin Dose Admin Sodium Chloride (Nss 1000ml) 1,000 ml @ 999 mls/hr Q1H1M STAT IV 11/27/16 05:03 11/27/16 06:03 DC 11/27/16 05:20 999 MLS/HR Insulin Human Regular (novoLIN-R U-100 PER UNIT) 10 units NOW STAT IV 11/27/16 05:03 11/27/16 05:05 DC 11/27/16 05:18 10 UNITS Lisinopril (Zestril Tab) 20 mg NOW STAT PO 11/27/16 05:04 11/27/16 05:06 DC 11/27/16 05:23 20 MG Acetaminophen (Tylenol Tab) 1,000 mg NOW STAT PO 11/27/16 05:32 11/27/16 05:33 DC 11/27/16 06:03 1,000 MG Cyclobenzaprine HCl (Flexeril Tab) 10 mg NOW STAT PO 11/27/16 06:35 11/27/16 06:37 DC 11/27/16 07:16 10 MG ED Course 0355: The patient was evaluated in room A5. A complete history and physical exam was performed. 0503: Insulin Human Regular 10 units IV, NSS 1000 ml @ 999 mls/hr. 0504: Zestril 20 mg PO. 0532: Tylenol 1000 mg PO. 0700: The patient was signed out to Dr. Bowen at change of shift. Medical Decision Differential: Mood Disorder, Overdose, Infectious, Electrolyte Abnormality, Cardiac, Hepatic, Endocrine, Toxicologic, Neurologic, amongst other pathologies entertained. 35 yr old male who on my evaluation admits that he was saying he was suicidal because it was cold outside and he does not have place to live. He denies to me that he would attempt to harm self. Requesting food/drink. Ketones in urine consistent with his dehydration and elevated BG. He is not in DKA. I suspect he is not taking his medications as prescribed. He does not require inpatient treatment for his hyperglycemia. Was given IV fluids and Insulin to help control sugars here with good improvement. No evidence sepsis/infection. After several hours he notes leg cramps. Requesting "muscle relaxer" for this which he notes he gets regularly and has been evaluated previously. No evidence of DVT by examination and I do not feel this requires US at this time. Given Tylenol then flexeril for discomfort. Pain worsening thus ordered US left left for further evaluation. Will sign out to Dr Bowen awaiting mental health evaluation. Impression Primary Impression: Depression Additional Impressions: Hyperglycemia Hypertension Scribe Attestation The scribe's documentation has been prepared under my direction and personally reviewed by me in its entirety. I confirm that the note above accurately reflects all work, treatment, procedures, and medical decision making performed by me. Departure Information Dispostion Still a Patient Referrals Chiquis Roche (PCP) Patient Instructions My [facility] Problem Qualifiers Primary Impression: Depression Depression Type: major depressive disorder Major depression recurrence: recurrent Active/Remission status: currently active Major depression episode severity: moderate Qualified Codes: F33.1 - Major depressive disorder, recurrent, moderate Additional Impressions: Hypertension Hypertension type: essential hypertension Qualified Codes: I10 - Essential ( primary) hypertension
[2016-11-27] MEDS ORDERED: INSDGIPEN SC (04:15)
[2016-11-27 04:19] LABS: URINE APPEARANCE CLEAR (CLEAR); URINE BILIRUBIN NEG (NEG); URINE COLOR YELLOW; URINE EPITHELIAL CELL AUTO 20-30 /lpf (0-5); URINE NITRITE NEG (NEG); URINE SPECIFIC GRAVITY 1.041 (1.000-1.030); UROBILINOGEN NEG (NEG); ZZUR CULT IF INDIC CLEAN CATCH NO
[2016-11-27 04:27] LABS: MANUAL MICROSCOPIC REQUIRED? NO; REVIEW REQ? NO
[2016-11-27 04:28] LABS: BASO % 0.2 %; BASO ABS # 0.02 K/uL (0-0.2); COMPLETE YES; EOS % 0.5 %; HEMATOCRIT 49.2 % (42-52); IG% 0.3 %; LYMPH % 20.8 %; MEAN CELL VOLUME 87.4 fL (80-100); MEAN CORPUSCULAR HEMOGLOBIN 30.7 pg (25-34); MEAN CORPUSCULAR HGB CONC 35.2 g/dl (32-36); MEAN PLATELET VOLUME 9.6 fL (7.4-10.4); MONO % 5.1 %; NEUT % 73.1 %; PLATELET COUNT 197 K/uL (130-400); RED BLOOD COUNT 5.63 M/uL (4.7-6.1); WHITE BLOOD COUNT 10.59 K/uL (4.8-10.8)
[2016-11-27 04:45] LABS: BENZODIAZEPINE, URINE NEG (NEG); COCAINE,URINE NEG (NEG); PHENCYCLIDINE, URINE NEG (NEG)
[2016-11-27 05:00] LABS: ALB/GLOB RATIO 1.1 (0.9-2); ALKALINE PHOSPHATASE 99 U/L (45-117); ALT/SGPT 40 U/L (12-78); AST/SGOT 25 U/L (15-37); BLOOD UREA NITROGEN 16 mg/dl (7-18); BUN/CREATININE RATIO 14.5 (10-20); CALCIUM 8.8 mg/dl (8.5-10.1); CARBON DIOXIDE 25 mmol/L (21-32); CHLORIDE 101 mmol/L (98-107); GLUCOSE 369 mg/dl (70-99); POTASSIUM 3.9 mmol/L (3.5-5.1); SODIUM 136 mmol/L (136-145)
[2016-11-27] MEDS ORDERED: NovoLIN-R INSULIN PER UNIT CHARGE IV STA (05:03)
[2016-11-27] MEDS ORDERED: SODIUM CHLORIDE 0.9% 1000ML 1,000 ML IV STA (05:03)
[2016-11-27] MEDS ORDERED: LISINOPRIL 20 MG TAB PO STA (05:04)
[2016-11-27 05:06] LABS: ACETAMINOPHEN < 2 ug/ml (10-30)
[2016-11-27 05:11] LABS: BETA-HYDROXYBUTYRATE 17.12 mg/dL (0.2-2.81)
[2016-11-27] MEDS ORDERED: ACETAMINOPHEN 500 MG TAB PO STA (05:32)
[2016-11-27] MEDS ORDERED: CYCLOBENZAPRINE HCL 5 MG TAB PO STA (06:35)
--- NOTE | 2016-11-27 07:10 | EMERGENCY ROOM VISIT NOTE ---
ED Visit Note This patient was signed out to me by Dr. Mayer at shift change. At which point the patient was awaiting ultrasound a psychiatric evaluation. It was felt that he would likely be a little be discharged home if mental health concurred. His ultrasound was obtained. There is no evidence of DVT. The patient is comfortable he denies any suicidal or homicidal ideations. He said he was just trying to see anyone would pay attention to him. He also wanted to get out of the cold. He was evaluated by mental health and they feel that he can go home. They have set him up with an appointment to see his psychiatrist tomorrow. He is comfortable with this plan. They have also arranged for placed for him to stay. He was encouraged to return if he has thoughts of hurting himself or others any new problems or concerns.
--- NOTE | 2016-11-27 07:39 | DIAGNOSTIC IMAGING REPORT ---
LEFT LOWER EXTREMITY VENOUS DOPPLER CLINICAL HISTORY: Left calf pain. COMPARISON STUDY: Left lower extremity Doppler ultrasound October 19, 2016. TECHNIQUE: Sonography of the deep venous system of the left lower extremity was performed. Compression and augmentation were evaluated. FINDINGS: The left common femoral, superficial femoral and popliteal veins were compressible. Augmentation was normal. Flow was shown within the deep calf vessels. IMPRESSION: No evidence of deep venous thrombus within the left lower extremity. Electronically signed by: Aris Barton M.D. 11/27/2016 7:38 AM Dictated Date/Time: 11/27/2016 7:37 AM
[2016-11-27 10:59] VITALS: BP 153/101; PULSE 106; O2SAT 99
[2017-01-26] MEDS ORDERED: TOPI100T20 PO (07:17)
[2017-01-26] MEDS ORDERED: LISI20TA3 PO (07:18)
[2017-01-26] MEDS ORDERED: ATOR-22 PO (07:24)
[2017-01-26] MEDS ORDERED: BUPR100T8 PO (08:33)
[2017-01-26] MEDS ORDERED: TRAZ100T29 PO (08:33)
== END 2016-11-27 10:58 | disposition home or self-care (01) ==
LOC: C.EDB 03:30 → C.EDA 10:58
DX: F33.1 Major depressive disorder, recurrent, moderate (principal); E11.65 Type 2 diabetes mellitus with hyperglycemia; I10 Essential (primary) hypertension; E86.0 Dehydration; G47.30 Sleep apnea, unspecified; E03.9 Hypothyroidism, unspecified; E66.01 Morbid (severe) obesity due to excess calories; F17.200 Nicotine dependence, unspecified, uncomplicated; Z79.4 Long term (current) use of insulin; Z81.8 Family history of other mental and behavioral disorders; M79.605 Pain in left leg

== ENCOUNTER 2016-12-22 11:28 | Emergency (ER) | payer OTHER ==
[~2016-12-22] VITALS: Ht 188 cm; Wt 187.4 kg
[~2016-12-22 11:28] MED LIST changes: +INSDGIPEN SC; -INSDGIPEN SQ
[2016-12-22 11:43] VITALS: TEMP 36.9; Ht 188 cm; Wt 187.4 kg
[2016-12-22 12:51] LABS: HEMATOCRIT 49.8 % (42-52); MEAN CELL VOLUME 87.4 fL (80-100); MEAN CORPUSCULAR HEMOGLOBIN 31.2 pg (25-34); MEAN CORPUSCULAR HGB CONC 35.7 g/dl (32-36); MEAN PLATELET VOLUME 10.4 fL (7.4-10.4); PLATELET COUNT 176 K/uL (130-400); WHITE BLOOD COUNT 10.25 K/uL (4.8-10.8)
--- NOTE | 2016-12-22 13:06 | EMERGENCY ROOM VISIT NOTE ---
History Report prepared by Anabell: Rosy Pedroza Under the Supervision of: Dr. Lang Loco M.D. First contact with patient: 12:09 Chief Complaint: ALTERED MENTAL STATUS Stated Complaint: CONFUSION Nursing Triage Summary: Patient ambulated to C7 by EMS. Per medic, patient was in [facility] speaking to himself and harassing other people who called the police, states "the police thought maube it was his sugar, so they called us but his BSG was 270. He has been cooperative and calm with us just all over the place when you ask him questions. He agreed to come here and get checked out." Patient cooperative at time of triage with pressured, tangential speech, disorganized thinking, restoration delusions. Patient stating, "All I need is Devante, maybe I am Devante. I like Vince Barlow, I'd like to meet him, you think thats possible?" Per mother, patient has been homeless, was recently discharged from [facility] December 13, states "I picked him up yesterday around noon at his motel, he didn't seem in his right mind, talking in circles, I think he's bipolar or something." History of Present Illness The patient is a 35 year old male who presents to the Emergency Room with a persistent change in mental status that began prior to arrival. Per nursing notes, the patient was brought to the emergency department by EMS after he was found in a park yelling at people and talking to himself. The patient reports that he feels slightly confused today, but states that he still feels good. He reports that he is currently homeless and that his family moved away. The patient has been having tangential thought process. 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 The patient states that he wants to get off his psych medications to feel young and alive again. He states that he is prescribed Topamax and Wellbutrin, but denies being compliant with his medications. The patient states that he was previously on [place]. He states that he was initially placed on the psychiatric medications because his PCP thought he was crazy. 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 He states that he takes insulin for his diabetes. The patient admits to auditory hallucinations, but states that it is all positive reinforcement. He states that he has been evaluated in the [facility] in the past, stating that he was laughing and in good spirits while there. The patient admits to alcohol and marijuana use occasionally, but denies any cocaine , heroin, or other recreational drug use. He denies any suicidal or homicidal ideation. Per nursing staff, the patient's BSG was 270 prior to arrival. Nursing staff reports that the patient was recently evaluated in the [facility] from - for suicidal ideation. Nursing staff reports that the patient's mother states that she last saw the patient yesterday, and notes that the patient had a tangential thought process. The history is limited secondary to the patient's altered mental status. Source of History: patient, nursing staff History Limited By: AMS Onset: prior to arrival Position: other (global) Quality: other (change in mental status) Timing: other (persistent) Note: Associated Symptoms: Auditory hallucinations. Review of Systems The medical history sheet was unobtainable secondary to the patient's change in mental status. The history is limited secondary to the patient's change in mental status. Past Medical & Surgical Medical Problems: (1) DEPRESSIVE DISORDER NEC (2) DIAB MARGAUX WO COMPL, TYPE II OR UNSPEC TYPE, NOT UNCNTRLD (3) DKA, type 2 (4) HYPERTENSION NOS (5) Hypothyroidism (6) MORBID OBESITY (7) Sleep apnea (8) URIN TRACT INFECTION NOS Family History Depression Social History Smoking Status: Unknown if Ever Smoked Alcohol Use: none Drug Use: none Marital Status: other Housing Status: lives alone Occupation Status: unemployed Current/Historical Medications Scheduled Atorvastatin (Lipitor), 20 MG PO DAILY Bupropion (Wellbutrin Sr), 100 MG PO BID Citalopram (Citalopram Hydrobromide), 40 MG PO DAILY Insulin Glargine (Lantus Solostar), 20 UNITS SC BID Lisinopril (Prinivil), 20 MG PO DAILY Topiramate (Topamax), 100 MG PO DAILY Scheduled PRN Albuterol Sulfate (Proair Respiclick), 2 PUFFS INH Q4H PRN for SOB/Wheezing Trazodone Hcl (Trazodone), 100 MG PO HS PRN for Insomnia Allergies Coded Allergies: Penicillins (Verified Allergy, Unknown, 12/22/16) Physical Exam Vital Signs Date Time Temp Pulse Resp B/P (MAP) Pulse Ox O2 Delivery O2 Flow Rate FiO2 12/22/16 19:25 103 96 Room Air 12/22/16 17:48 84 18 180/120 99 Room Air 12/22/16 16:38 96 26 166/94 98 Room Air 12/22/16 15:34 88 20 148/66 97 12/22/16 13:40 90 16 165/105 95 Room Air 12/22/16 12:07 92 12/22/16 11:43 36.9 94 20 176/96 97 Room Air Physical Exam GENERAL: Patient awake, alert, oriented, but inappropriate. Patient follows commands. Patient does not appear toxic. Patient is adequately hydrated and well-nourished. SKIN: No erythema, pallor, cyanosis or rash HEENT: Normal head, pupils equal, reactive to light and accommodation. Oral cavity and posterior pharynx appear normal. Neck: Without adenopathy, no neck vein distention. LUNGS: Clear to auscultation. No wheezes, no rales, no rhonchi. HEART: No murmurs. No gallops. No rubs ABDOMEN: Obese, ecchymosis in right lower quadrant. No masses, no rebound, no hepatomegaly or splenomegaly. EXTREMITIES: No signs of trauma. No pedal or pretibial edema. No calf or thigh tenderness. NEUROLOGIC: Cranial nerves II-XII within normal limits. No gross motor sensory function deficits. PSYCH: Awake, alert, oriented. Patient appears somewhat confused and tangential. He admits to auditory hallucinations, but denies suicidality or homicidality. The patient is delusional. Medical Decision & Procedures ER Provider Diagnostic Interpretation: Radiology results as stated below per my review and radiologist interpretation: HEAD CT NONCONTRAST CT DOSE: 850.93 mGy.cm HISTORY: altered mental status TECHNIQUE: Multiaxial CT images of the head were performed without the use of intravenous contrast. Automated exposure control was utilized for this study. Comparison: None. Findings: The paranasal sinuses and mastoid air cells are clear. The calvarium and skull base are intact. The ventricles and sulci are within normal limits. There is no mass, hematoma, midline shift, or acute infarct. Impression: No acute intracranial abnormality. Electronically signed by: Carlitos Pugh M.D. 12/22/2016 1:13 PM Dictated Date/Time: 12/22/2016 1:10 PM CHEST 2 VIEWS ROUTINE HISTORY: altered mental status COMPARISON: Chest 10/19/2016. FINDINGS: The lungs are clear. Cardiac silhouette is normal in size. No pleural effusions. No pneumothorax. IMPRESSION: No acute process. Electronically signed by: Carlitos Pugh M.D. 12/22/2016 1:16 PM Dictated Date/Time: 12/22/2016 1:15 PM Laboratory Results 12/22/16 12:30 12/22/16 13:15 Test 12/22/16 12:13 12/22/16 12:30 12/22/16 12:55 12/22/16 13:15 Urine Opiates Screen NEG (NEG) Urine Methadone, Qualitative NEG (NEG) Urine Barbiturates NEG (NEG) Urine Phencyclidine (PCP) Level NEG (NEG) Ur Amphetamine/Methamphetamine NEG (NEG) MDMA (Ecstasy) Screen POS (NEG) Urine Benzodiazepines Screen NEG (NEG) Urine Cocaine Metabolite NEG (NEG) Urine Marijuana (THC) NEG (NEG) Red Blood Count 5.70 M/uL (4.7-6.1) Mean Corpuscular Volume 87.4 fL (80-100) Mean Corpuscular Hemoglobin 31.2 pg (25-34) Mean Corpuscular Hemoglobin Concent 35.7 g/dl (32-36) RDW Standard Deviation 42.0 fL (36.4-46.3) RDW Coefficient of Variation 13.2 % (11.5-14.5) Mean Platelet Volume 10.4 fL (7.4-10.4) Ethyl Alcohol mg/dL < 3.0 mg/dl (0-3) Prothrombin Time 10.9 SECONDS (9.0-12.0) Prothromb Time International Ratio 1.0 (0.9-1.1) Activated Partial Thromboplast Time 27.2 SECONDS (21.0-31.0) Partial Thromboplastin Ratio 1.0 Anion Gap 5.0 mmol/L (3-11) Est Creatinine Clear Calc Drug Dose 187.2 ml/min Estimated GFR () 118.0 Estimated GFR (Non- 101.9 BUN/Creatinine Ratio 9.6 (10-20) Calcium Level 8.7 mg/dl (8.5-10.1) Total Bilirubin 0.8 mg/dl (0.2-1) Aspartate Amino Transf (AST/SGOT) 18 U/L (15-37) Alanine Aminotransferase (ALT/SGPT) 39 U/L (12-78) Alkaline Phosphatase 97 U/L (45-117) Total Protein 7.7 gm/dl (6.4-8.2) Albumin 3.8 gm/dl (3.4-5.0) Globulin 3.9 gm/dl (2.5-4.0) Albumin/Globulin Ratio 1.0 (0.9-2) Thyroid Stimulating Hormone (TSH) 2.260 uIu/ml (0.300-4.500) Laboratory results as stated above per my review.Reviewed by myself. Radiology impression listed below. Recycled Medications Administered Medications (Trade) Dose Ordered Sig/Paulette Route Start Time Stop Time Status Last Admin Dose Admin Lorazepam (Ativan Tab) 1 mg NOW STAT SL 12/22/16 16:38 12/22/16 16:39 DC 12/22/16 16:45 1 MG Lorazepam (Ativan Inj) 2 mg STK-MED ONCE .ROUTE 12/22/16 19:16 12/22/16 19:17 DC 12/22/16 19:16 2 MG Haloperidol Lactate (Haldol Inj) 10 mg STK-MED ONCE .ROUTE 12/22/16 19:16 12/22/16 19:17 DC 12/22/16 19:16 10 MG ECG Indication: altered mental status Rate (beats per minute): 85 Rhythm: normal sinus Findings: no acute ischemic change, no ectopy ED Course B Rachael 1209: Past medical records reviewed. The patient was evaluated in room C7. A complete history and physical examination was performed. 1541: I reevaluated the patient and he is still appears very confused. 1614: Per the psych manager rn case, the patient will be referred to the [facility] for further psychiatric treatment. 1638: Ordered Ativan Tab 1 mg SL. 1913: As the patient was preparing for transfer to [facility], he was being read his rights when he became angry and ran out of the room. He will now be 302'd. 1915: Ordered Haldol Inj 10 mg .route, Ativan Inj 2 mg .route. 2004: The patient is awaiting transfer to [facility] for further psychiatric care. 2030: Patient is awaiting transport to [facility] for 2199. 2119 blood sugar was checked and is greater than 350. The patient was ordered 10 units of subcutaneous regular insulin. 2129 patient was rechecked. He is feeling better. We await transport. Medical Decision Nurses notes reviewed. Medical history sheet reviewed. Differential diagnosis includes but is not limited to: schizophrenia, paranoia, metabolic disorder including diabetes. Medication Reconciliation: I attest that I have personally reviewed the patient' s current medication list. Blood Pressure Screening: Patient was found to have an elevated blood pressure and was referred to their primary doctor for recheck and further treatment. The patient has a psychiatric history and was recently released from the [facility]. The patient was found at [facility] screaming at other individuals. Patient was confused and delusional. Patient denies suicidal or homicidal ideation but incapable of caring for himself. 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 The patient requires additional help was therefore placed on a 302. The patient became agitated and attempted to run out of the department. He was restrained with leather restraints initially and then with chemical restraint that his Haldol/Ativan. Patient improved markedly. The patient was accepted for admission to [facility]. Impression Primary Impression: Acute psychosis Additional Impressions: Diabetes MORBID OBESITY Scribe Attestation The scribe's documentation has been prepared under my direction and personally reviewed by me in its entirety. I confirm that the note above accurately reflects all work, treatment, procedures, and medical decision making performed by me. Departure Information Dispostion Mental Health Acute Care Referrals Chiquis Roche (PCP) Problem Qualifiers
[2016-12-22 13:10] LABS: BENZODIAZEPINE, URINE NEG (NEG); COCAINE,URINE NEG (NEG); PHENCYCLIDINE, URINE NEG (NEG)
--- NOTE | 2016-12-22 13:14 | DIAGNOSTIC IMAGING REPORT ---
HEAD CT NONCONTRAST CT DOSE: 850.93 mGy.cm HISTORY: altered mental status TECHNIQUE: Multiaxial CT images of the head were performed without the use of intravenous contrast. Automated exposure control was utilized for this study. Comparison: None. Findings: The paranasal sinuses and mastoid air cells are clear. The calvarium and skull base are intact. The ventricles and sulci are within normal limits. There is no mass, hematoma, midline shift, or acute infarct. Impression: No acute intracranial abnormality. Electronically signed by: Carlitos Pugh M.D. 12/22/2016 1:13 PM Dictated Date/Time: 12/22/2016 1:10 PM
--- NOTE | 2016-12-22 13:18 | DIAGNOSTIC IMAGING REPORT ---
CHEST 2 VIEWS ROUTINE HISTORY: altered mental status COMPARISON: Chest 10/19/2016. FINDINGS: The lungs are clear. Cardiac silhouette is normal in size. No pleural effusions. No pneumothorax. IMPRESSION: No acute process. Electronically signed by: Carlitos Pugh M.D. 12/22/2016 1:16 PM Dictated Date/Time: 12/22/2016 1:15 PM
[2016-12-22 13:49] LABS: PROTHROMBIN TIME (PATIENT) 10.9 SECONDS (9.0-12.0)
[2016-12-22 13:52] LABS: BUN/CREATININE RATIO 9.6 (10-20); CALCIUM 8.7 mg/dl (8.5-10.1); CREATININE 0.95 mg/dl (0.60-1.40); POTASSIUM 4.1 mmol/L (3.5-5.1)
[2016-12-22 14:02] LABS: THYROID STIMULATING HORMONE 2.26 uIu/ml (0.300-4.500)
[2016-12-22] MEDS ORDERED: LORAZEPAM 1 MG TAB SL STA (16:38)
[2016-12-22] MEDS ORDERED: LORAZEPAM 2 MG/ML 1 ML VIAL ONE (19:16)
[2016-12-22] MEDS ORDERED: HALOPERIDOL LACTATE 5 MG/ML 1 ML VIAL ONE (19:16)
[2016-12-22] MEDS ORDERED: NovoLIN-R INSULIN PER UNIT CHARGE SC STA (21:27)
[2016-12-22] MEDS ORDERED: NovoLIN-R INSULIN PER UNIT CHARGE SQ STA (22:30)
--- NOTE | 2016-12-23 00:47 | EMERGENCY ROOM VISIT NOTE ---
ED Visit Note First contact with patient: 22:30 The patient was to be transferred to [facility] for psychiatric care. The doctor at [facility] called and decided that she would not accept the patient as she felt his blood pressure was too high and his blood sugar was too high. The patient received subcutaneous insulin. His sugar is now in the 200s, it has improved. He has been resting since he was medicated with Haldol and Ativan. His blood pressure is adequate. The patient is being seen by psychiatry for placement elsewhere. At this point , the case is being assumed by Dr. Sánchez, please see her notes for the final disposition and plan.
[2016-12-23] MEDS ORDERED: ATORVASTATIN 20 MG TAB PO STA (05:10)
[2016-12-23] MEDS ORDERED: TOPIRAMATE 100 MG TAB PO STA (05:13)
[2016-12-23] MEDS ORDERED: CITALOPRAM 40 MG TAB PO STA (05:13)
--- NOTE | 2016-12-23 05:17 | EMERGENCY ROOM VISIT NOTE ---
ED Visit Note First contact with patient: 00:43 This case was signed out to me at change of shift awaiting bed placement. Initially, the patient was sleeping. Upon my evaluation the patient, he was awake and cooperative. His morning medications will be prescribed. He was accepted at the [facility] and will be transferred there at 7 AM.
[2016-12-23 07:02] VITALS: BP 139/72; PULSE 79; O2SAT 96
[2017-01-26] MEDS ORDERED: TOPI100T20 PO (07:17)
[2017-01-26] MEDS ORDERED: LISI20TA3 PO (07:18)
[2017-01-26] MEDS ORDERED: ATOR-22 PO (07:24)
[2017-01-26] MEDS ORDERED: TRAZ100T29 PO (08:33)
[2017-01-26] MEDS ORDERED: BUPR100T8 PO (08:33)
== END 2016-12-23 07:02 ==
LOC: EDBD 11:28 → C.EDC 11:29 → C.EDA 12-23 07:02
DX: F23 Brief psychotic disorder (principal); E66.01 Morbid (severe) obesity due to excess calories; E11.9 Type 2 diabetes mellitus without complications; I10 Essential (primary) hypertension; E03.9 Hypothyroidism, unspecified; F32.9 Major depressive disorder, single episode, unspecified; G47.30 Sleep apnea, unspecified; Z87.440 Personal history of urinary (tract) infections; Z79.4 Long term (current) use of insulin; Z79.899 Other long term (current) drug therapy; Z88.0 Allergy status to penicillin; Z81.8 Family history of other mental and behavioral disorders

== ENCOUNTER 2017-01-26 21:33 | Emergency (ER) | payer OTHER ==
[~2017-01-26] VITALS: Ht 188 cm; Wt 187.7 kg
[~2017-01-26 21:33] MED LIST changes: +ATOR-22 PO; +BUPR100T8 PO; +LISI20TA3 PO; +TOPI100T20 PO; +TRAZ100T29 PO
[2017-01-26 21:41] VITALS: TEMP 36.5; Ht 188 cm; Wt 187.7 kg
[2017-01-26] MEDS ORDERED: SODIUM CHLORIDE 0.9% 1000ML 1,000 ML IV ONE (22:23)
[2017-01-26] MEDS ORDERED: SODIUM CHLORIDE 0.9% 1000ML 1,000 ML IV STA (22:23)
[2017-01-26] MEDS ORDERED: INSU3INJ3 SQ (22:26)
[2017-01-26] MEDS ORDERED: [UNRECOGNIZED DRUG - REMARK] PO (22:26)
[2017-01-26] MEDS ORDERED: ASPI81TA28 PO (22:26)
[2017-01-26] MEDS ORDERED: HALO2TAB PO (22:26)
[2017-01-26] MEDS ORDERED: NVLG SQ (22:34)
[2017-01-26 22:38] LABS: BASO % 0.2 %; BASO ABS # 0.02 K/uL (0-0.2); COMPLETE YES; HEMATOCRIT 41.4 % (42-52); IG% 0.3 %; LYMPH % 22.9 %; LYMPH ABS # 2.48 K/uL (1.2-3.4); MEAN CELL VOLUME 86.6 fL (80-100); MEAN CORPUSCULAR HEMOGLOBIN 29.9 pg (25-34); MEAN CORPUSCULAR HGB CONC 34.5 g/dl (32-36); MEAN PLATELET VOLUME 9.2 fL (7.4-10.4); MONO % 6.5 %; NEUT % 69.1 %; PLATELET COUNT 193 K/uL (130-400); RED BLOOD COUNT 4.78 M/uL (4.7-6.1); WHITE BLOOD COUNT 10.84 K/uL (4.8-10.8)
[2017-01-26] MEDS ORDERED: KETOROLAC TROMETHAMINE 30 MG/ML VIAL IV STA (22:38)
[2017-01-26 22:50] LABS: BUN/CREATININE RATIO 8.4 (10-20); CALCIUM 8.5 mg/dl (8.5-10.1); CREATININE 1.4 mg/dl (0.60-1.40)
[2017-01-26 22:56] LABS: CKMB/CK RATIO 1.1 (0-3.0)
[2017-01-26 22:58] LABS: URINE APPEARANCE CLEAR (CLEAR); URINE BILIRUBIN NEG (NEG); URINE COLOR YELLOW; URINE EPITHELIAL CELL AUTO 20-30 /lpf (0-5); URINE NITRITE NEG (NEG); URINE SPECIFIC GRAVITY 1.019 (1.000-1.030); UROBILINOGEN POS (NEG)
[2017-01-26 23:00] LABS: MANUAL MICROSCOPIC REQUIRED? NO; REVIEW REQ? NO
--- NOTE | 2017-01-26 23:32 | EMERGENCY ROOM VISIT NOTE ---
History Report prepared by Anabell: Sue Crocker Under the Supervision of: Dr. Anirudh Bowen M.D. First contact with patient: 22:00 Chief Complaint: MENTAL HEALTH EVALUATION Stated Complaint: MENTAL HEALTH EVALUATION History of Present Illness The patient is a 36 year old male who presents to the Emergency Room with complaints of worsening mental health problems starting today. He was found on laying on the ground by the police. He reports that the police had told him get comfortable on the ground after he informed them of his situation. He has not taken his medications since yesterday morning because his medications are at his mother's house. The patient has a history of depression and diabetes. He takes insulin and medications for his depression. He has been unable to get home because his mother's car broke down. He states that he does not have any mental health concerns at this time. He just needs transport to his mother's house so that he can take his medications. He has been crying all day because he is "missing somebody". He denies having any thoughts of hurting himself or overdose. He does not have any mental health complaints. He admits to drinking 3 -4 beers today. He denies any recent falls or trauma. He reports back pain which is chronic. He denies any chest pain or SOB. He has not been eating. Source of History: patient Onset: today Position: other (mental health) Quality: other (mental health problem) Timing: worsening Associated Symptoms: No chest pain, No SOB Note: Pt reports crying today. Pt denies thoughts of hurting himself. Review of Systems See HPI for pertinent positives & negatives. A total of 10 systems reviewed and were otherwise negative. Past Medical & Surgical Medical Problems: (1) DEPRESSIVE DISORDER NEC (2) DIAB MARGAUX WO COMPL, TYPE II OR UNSPEC TYPE, NOT UNCNTRLD (3) DKA, type 2 (4) HYPERTENSION NOS (5) Hypothyroidism (6) MORBID OBESITY (7) Sleep apnea (8) URIN TRACT INFECTION NOS Old medical records were reviewed. Nurse's notes were reviewed and I agree with. Family History Depression Social History Smoking Status: Current Every Day Smoker Alcohol Use: none Drug Use: none Marital Status: other Housing Status: lives alone Occupation Status: unemployed Current/Historical Medications Scheduled Atorvastatin (Lipitor), 20 MG PO DAILY Bupropion (Wellbutrin Sr), 100 MG PO BID Haloperidol (Haloperidol), 1 TAB PO BID Insulin Aspart (Novolog), 18 UNITS SQ AC Insulin Detemir (Levemir Flextouch), 40 UNITS SQ BID Lisinopril (Prinivil), 20 MG PO DAILY Topiramate (Topamax), 100 MG PO DAILY [Unknown Benzo Med], 1 TAB PO BID Scheduled PRN Trazodone Hcl (Trazodone), 200 MG PO HS PRN for Insomnia Allergies Coded Allergies: Wheat (Verified Allergy, Severe, STATES IT MAKES HIM GO INSANE, 01/26/17) Penicillins (Verified Allergy, Unknown, 12/22/16) Physical Exam Vital Signs Date Time Temp Pulse Resp B/P (MAP) Pulse Ox O2 Delivery O2 Flow Rate FiO2 01/26/17 21:41 36.5 87 18 139/84 97 Room Air Physical Exam General: Non ill appearing middle age male. Well developed well nourished in no acute distress, breathing comfortably on room air. Normal speech HEENT: Normal cephalic atraumatic. Pupils are equal round and reactive to light. Extraocular movements are intact. Oropharynx is pink with moist mucous membranes. No swelling of the mouth lips or tongue. Neck: Supple with a midline trachea. No meningeal signs or stiffness, no JVD or bruits. No Stridor. Chest: Clear to auscultation bilaterally. No wheezes or rhonchi. No increased work of breathing. Heart: regular rate and rhythm. Abdomen: Soft nontender, nondistended without rebound guarding or rigidity. Extremities: No cyanosis clubbing or edema. No calf tenderness or assymetry Spine/Back. Non tender to palpation. No CVA tenderness Skin: Good turgor without rashes. Neurologic exam: Cranial nerves two through 12 are intact. Motor and sensation are intact and symmetrical throughout. Psych: Normal thought process and affect, denies suicidal and homicidal ideation. Medical Decision & Procedures Laboratory Results 01/26/17 22:21 Red Blood Count 4.78, Mean Corpuscular Volume 86.6, Mean Corpuscular Hemoglobin 29.9, Mean Corpuscular Hemoglobin Concent 34.5, Mean Platelet Volume 9.2, Neutrophils (%) (Auto) 69.1, Lymphocytes (%) (Auto) 22.9, Monocytes (%) (Auto) 6.5, Eosinophils (%) (Auto) 1.0, Basophils (%) (Auto) 0.2, Neutrophils # (Auto) 7.50, Lymphocytes # (Auto) 2.48, Monocytes # (Auto) 0.70, Eosinophils # (Auto) 0.11, Basophils # (Auto) 0.02 01/26/17 22:21 Test 01/26/17 21:55 01/26/17 22:21 01/26/17 22:23 Urine Color YELLOW Urine Appearance CLEAR (CLEAR) Urine pH 7.0 (4.5-7.5) Urine Specific [place] 1.019 (1.000-1.030) Urine Protein NEG (NEG) Urine Glucose (UA) NEG (NEG) Urine Ketones NEG (NEG) Urine Occult Blood NEG (NEG) Urine Nitrite NEG (NEG) Urine Bilirubin NEG (NEG) Urine Urobilinogen POS (NEG) Urine Leukocyte Esterase SMALL (NEG) Urine WBC (Auto) 1-5 /hpf (0-5) Urine RBC (Auto) 0-4 /hpf (0-4) Urine Hyaline Casts (Auto) 0 /lpf (0-5) Urine Epithelial Cells (Auto) 20-30 /lpf (0-5) Urine Bacteria (Auto) NEG (NEG) White Blood Count 10.84 K/uL (4.8-10.8) Red Blood Count 4.78 M/uL (4.7-6.1) Hemoglobin 14.3 g/dL (14.0-18.0) Hematocrit 41.4 % (42-52) Mean Corpuscular Volume 86.6 fL (80-100) Mean Corpuscular Hemoglobin 29.9 pg (25-34) Mean Corpuscular Hemoglobin Concent 34.5 g/dl (32-36) Platelet Count 193 K/uL (130-400) Mean Platelet Volume 9.2 fL (7.4-10.4) Neutrophils (%) (Auto) 69.1 % Lymphocytes (%) (Auto) 22.9 % Monocytes (%) (Auto) 6.5 % Eosinophils (%) (Auto) 1.0 % Basophils (%) (Auto) 0.2 % Neutrophils # (Auto) 7.50 K/uL (1.4-6.5) Lymphocytes # (Auto) 2.48 K/uL (1.2-3.4) Monocytes # (Auto) 0.70 K/uL (0.11-0.59) Eosinophils # (Auto) 0.11 K/uL (0-0.5) Basophils # (Auto) 0.02 K/uL (0-0.2) RDW Standard Deviation 41.9 fL (36.4-46.3) RDW Coefficient of Variation 13.1 % (11.5-14.5) Immature Granulocyte % (Auto) 0.3 % Immature Granulocyte # (Auto) 0.03 K/uL (0.00-0.02) Anion Gap 7.0 mmol/L (3-11) Est Creatinine Clear Calc Drug Dose 125.9 ml/min Estimated GFR () 73.4 Estimated GFR (Non- 63.3 BUN/Creatinine Ratio 8.4 (10-20) Calcium Level 8.5 mg/dl (8.5-10.1) Total Bilirubin 0.5 mg/dl (0.2-1) Direct Bilirubin 0.1 mg/dl (0-0.2) Aspartate Amino Transf (AST/SGOT) 14 U/L (15-37) Alanine Aminotransferase (ALT/SGPT) 25 U/L (12-78) Alkaline Phosphatase 73 U/L (45-117) Total Creatine Kinase 356 U/L (39-308) Creatine Kinase MB 3.9 ng/ml (0.5-3.6) Total Protein 6.9 gm/dl (6.4-8.2) Albumin 3.3 gm/dl (3.4-5.0) Lipase 124 U/L (73-393) Ethyl Alcohol mg/dL < 3.0 mg/dl (0-3) Creatine Kinase MB Ratio (0-3.0) Laboratory studies as stated above per my review. Medications Administered Medications (Trade) Dose Ordered Sig/Paulette Route Start Time Stop Time Status Last Admin Dose Admin Sodium Chloride 1,000 ml @ 999 mls/hr Q1H1M STAT IV 01/26/17 22:23 01/26/17 23:23 DC 01/26/17 22:46 999 MLS/HR ED Course 2201: Past medical records reviewed. The patient was evaluated in room A6, and a complete history and physical examination were performed. 2223: NSS 1000 ml @ 150 mls/hr IV, NSS 1000 ml @ 999 mls/hr IV. 2238: Toradol Inj 30 mg IV. 2318: Upon reevaluation, the patient is feeling well. I discussed the results and treatment plan with him. He verbalized agreement of the treatment plan. He will go home by cab and take his medications at home. The patient was discharged home. Medical Decision Differentials include, but are not limited to; depression, anxiety, DKA, electrolyte or metabolic abnormality. Medication Reconciliation: I attest that I have personally reviewed the patient' s current medication list. Blood pressure Screening: Patient was found to have normal blood pressure on screening and does not require follow-up. This patient comes in as described above. He was brought in after apparently being stranded and [employer] and not having his meds. He said that his mother can't pick him back up because her car broke. He was sleeping downtown. He did not take his meds today. He has no acute complaints. He does have a psych history but denies feeling suicidal or homicidal and does not feel he needs further psychiatric help and declines further intervention at this point. He says he just needs to get a ride home and take his meds which he tells me he has home. Given the fact he is diabetic, I did check some blood work and his blood sugar is only mildly elevated at 180. He has no evidence of DKA. There is no acute electrolyte or metabolic abnormality. He has Nothing to suggest an acute toxicologic process. His CK was only mildly elevated. He has nothing to suggest acute rhabdo. We have arranged to give him a cab ride home and he is going to take his medications when he gets home. He is happy with the plan and will be discharged home. He was encouraged to return if he has any new problems or concerns or any problems with his mental health including thoughts of hurting himself or others and was encouraged to use medications as directed. Impression Primary Impression: Hyperglycemia Additional Impressions: Medication refill Mental health-related complaint Scribe Attestation The scribe's documentation has been prepared under my direction and personally reviewed by me in its entirety. I confirm that the note above accurately reflects all work, treatment, procedures, and medical decision making performed by me. Departure Information Dispostion Home / Self-Care Referrals David Melgar M.D. Forms HOME CARE DOCUMENTATION FORM, IMPORTANT VISIT INFORMATION Patient Instructions My [facility] Additional Instructions Rest Drink plenty of fluids Take your meds when you get home Take your meds as directed REturn if: worsening of symptoms, thoughts of hurting yourself or others, any new problems or concerns Follow-up with your doctor on Saturday for recheck Problem Qualifiers
[2017-01-26 23:33] VITALS: BP 133/79; PULSE 79; O2SAT 96
[2017-01-26 23:35] LABS: BENZODIAZEPINE, URINE NEG (NEG); COCAINE,URINE NEG (NEG); PHENCYCLIDINE, URINE NEG (NEG)
== END 2017-01-26 23:34 | disposition home or self-care (01) ==
LOC: EDBD 21:33 → C.EDA 21:36
DX: E11.65 Type 2 diabetes mellitus with hyperglycemia (principal); F32.9 Major depressive disorder, single episode, unspecified; Z79.4 Long term (current) use of insulin; Z79.899 Other long term (current) drug therapy; M54.9 Dorsalgia, unspecified; G89.29 Other chronic pain; I10 Essential (primary) hypertension; E03.9 Hypothyroidism, unspecified; E66.01 Morbid (severe) obesity due to excess calories; G47.30 Sleep apnea, unspecified; Z87.440 Personal history of urinary (tract) infections; Z81.8 Family history of other mental and behavioral disorders; F17.210 Nicotine dependence, cigarettes, uncomplicated

== ENCOUNTER 2017-02-05 03:46 | Emergency (ER) | payer OTHER ==
[~2017-02-05 03:46] MED LIST changes: -ALBU18002 INH; -CITA40TA4 PO; +HALO2TAB PO; -INSDGIPEN SC; +INSU3INJ3 SQ; +NVLG SQ; +[UNRECOGNIZED DRUG - REMARK] PO
[2017-02-05 03:49] VITALS: Ht 188 cm
[2017-02-05 04:23] LABS: BASO % 0.1 %; BASO ABS # 0.01 K/uL (0-0.2); COMPLETE YES; EOS % 1.5 %; HEMATOCRIT 43.2 % (42-52); IG% 0.2 %; LYMPH % 28.6 %; LYMPH ABS # 2.74 K/uL (1.2-3.4); MEAN CELL VOLUME 85.2 fL (80-100); MEAN CORPUSCULAR HEMOGLOBIN 29.6 pg (25-34); MEAN CORPUSCULAR HGB CONC 34.7 g/dl (32-36); MEAN PLATELET VOLUME 9.1 fL (7.4-10.4); MONO % 5.6 %; PLATELET COUNT 181 K/uL (130-400); RED BLOOD COUNT 5.07 M/uL (4.7-6.1); WHITE BLOOD COUNT 9.58 K/uL (4.8-10.8)
--- NOTE | 2017-02-05 04:33 | EMERGENCY ROOM VISIT NOTE ---
History Report prepared by Anabell: Star Blackwood Under the Supervision of: Dr. Tal Mayer M.D. First contact with patient: 04:02 Chief Complaint: MENTAL HEALTH EVALUATION Stated Complaint: CRYING EMOTIONALLY,MEDS NOT WORKING History of Present Illness The patient is a 36 year old male who presents to the Emergency Room for a mental health evaluation. He states that he is very suicidal and wishes he can take his life right now. He is tired of his medications not working for him. He was here last month and received further treatment at the [facility]. He then received Haldol. He has had thoughts of hurting himself for a long time that have been constant. He states that he cries constantly, nonstop, 24 hours every single day. He has not tried to take his own life. He states that he does not talk to his doctor about it because he does not like them. He denies anyone causing him physical harm, but states that he thinks his girlfriend is mentally abusing him, or "trying to break me." He denies any homicidal ideation. He is just requesting help. He denies any alcohol use or drug use. Although he is sick of his medications, he has been taking them. Source of History: patient Onset: 1 month Position: other (global) Symptom Intensity: moderate Quality: other (Suicidal Ideation) Timing: constant Note: He denies any homicidal ideation. He notes an increased in crying. Review of Systems See HPI for pertinent positives & negatives. A total of 10 systems reviewed and were otherwise negative. Past Medical & Surgical Medical Problems: (1) DEPRESSIVE DISORDER NEC (2) DIAB MARGAUX WO COMPL, TYPE II OR UNSPEC TYPE, NOT UNCNTRLD (3) DKA, type 2 (4) HYPERTENSION NOS (5) Hypothyroidism (6) MORBID OBESITY (7) Sleep apnea (8) URIN TRACT INFECTION NOS Family History Depression Social History Smoking Status: Current Every Day Smoker Alcohol Use: none Drug Use: none Marital Status: other Housing Status: lives alone Occupation Status: unemployed Current/Historical Medications Scheduled Atorvastatin (Lipitor), 20 MG PO DAILY Bupropion (Wellbutrin Sr), 100 MG PO BID Haloperidol (Haloperidol), 1 TAB PO BID Insulin Aspart (Novolog), 18 UNITS SQ AC Insulin Detemir (Levemir Flextouch), 40 UNITS SQ BID Lisinopril (Prinivil), 20 MG PO DAILY Topiramate (Topamax), 100 MG PO DAILY [Unknown Benzo Med], 1 TAB PO BID Scheduled PRN Trazodone Hcl (Trazodone), 200 MG PO HS PRN for Insomnia Allergies Coded Allergies: Wheat (Verified Allergy, Severe, STATES IT MAKES HIM GO INSANE, 02/05/17) Penicillins (Verified Allergy, Unknown, 02/05/17) Physical Exam Vital Signs Date Time Temp Pulse Resp B/P (MAP) Pulse Ox O2 Delivery O2 Flow Rate FiO2 02/05/17 05:48 85 24 131/80 98 Room Air 02/05/17 03:49 36.7 82 20 143/95 96 Room Air Physical Exam GENERAL: Patient is loud and intense, but not physically confrontational. Well appearing and in no acute distress. HEENT: No acute trauma, normocephalic atraumatic, mucous membranes moist, no nasal congestion, no scleral icterus. NECK: No stridor, no adenopathy, no meningismus, trachea is midline. LUNGS: No dyspnea. Clear to auscultation and equal bilaterally. No wheeze, no rhonchi. HEART: Regular rate and rhythm. No murmurs, rubs, gallops appreciated. ABDOMEN: Soft, nontender, bowel sounds positive, no masses appreciated, no peritonitis. BACK: No midline tenderness, no CVA tenderness EXTREMITIES: Normal motion all extremities, no cyanosis, no edema. NEUROLOGIC: Alert and oriented, no acute motor or sensory deficits, no focal weakness, cranial nerves grossly intact. SKIN: No rash, no jaundice, no diaphoresis. PSYCH: States that he has a suicidal ideation and depression. He denies any hallucinations or homicidal ideations. Medical Decision & Procedures Laboratory Results 02/05/17 04:13 Red Blood Count 5.07, Mean Corpuscular Volume 85.2, Mean Corpuscular Hemoglobin 29.6, Mean Corpuscular Hemoglobin Concent 34.7, Mean Platelet Volume 9.1, Neutrophils (%) (Auto) 64.0, Lymphocytes (%) (Auto) 28.6, Monocytes (%) (Auto) 5.6, Eosinophils (%) (Auto) 1.5, Basophils (%) (Auto) 0.1, Neutrophils # (Auto) 6.13, Lymphocytes # (Auto) 2.74, Monocytes # (Auto) 0.54, Eosinophils # (Auto) 0.14, Basophils # (Auto) 0.01 02/05/17 04:13 Test 02/05/17 04:13 02/05/17 05:15 White Blood Count 9.58 K/uL (4.8-10.8) Red Blood Count 5.07 M/uL (4.7-6.1) Hemoglobin 15.0 g/dL (14.0-18.0) Hematocrit 43.2 % (42-52) Mean Corpuscular Volume 85.2 fL (80-100) Mean Corpuscular Hemoglobin 29.6 pg (25-34) Mean Corpuscular Hemoglobin Concent 34.7 g/dl (32-36) Platelet Count 181 K/uL (130-400) Mean Platelet Volume 9.1 fL (7.4-10.4) Neutrophils (%) (Auto) 64.0 % Lymphocytes (%) (Auto) 28.6 % Monocytes (%) (Auto) 5.6 % Eosinophils (%) (Auto) 1.5 % Basophils (%) (Auto) 0.1 % Neutrophils # (Auto) 6.13 K/uL (1.4-6.5) Lymphocytes # (Auto) 2.74 K/uL (1.2-3.4) Monocytes # (Auto) 0.54 K/uL (0.11-0.59) Eosinophils # (Auto) 0.14 K/uL (0-0.5) Basophils # (Auto) 0.01 K/uL (0-0.2) RDW Standard Deviation 40.2 fL (36.4-46.3) RDW Coefficient of Variation 13.0 % (11.5-14.5) Immature Granulocyte % (Auto) 0.2 % Immature Granulocyte # (Auto) 0.02 K/uL (0.00-0.02) Anion Gap 6.0 mmol/L (3-11) Estimated GFR () 98.2 Estimated GFR (Non- 84.7 BUN/Creatinine Ratio 12.3 (10-20) Calcium Level 8.8 mg/dl (8.5-10.1) Total Bilirubin 0.5 mg/dl (0.2-1) Aspartate Amino Transf (AST/SGOT) 11 U/L (15-37) Alanine Aminotransferase (ALT/SGPT) 28 U/L (12-78) Alkaline Phosphatase 78 U/L (45-117) Total Protein 7.3 gm/dl (6.4-8.2) Albumin 3.6 gm/dl (3.4-5.0) Globulin 3.7 gm/dl (2.5-4.0) Albumin/Globulin Ratio 1.0 (0.9-2) Thyroid Stimulating Hormone (TSH) 7.220 uIu/ml (0.300-4.500) Salicylates Level < 1.7 mg/dl (2.8-20) Acetaminophen Level < 2 ug/ml (10-30) Ethyl Alcohol mg/dL < 3.0 mg/dl (0-3) Urine Color YELLOW Urine Appearance CLEAR (CLEAR) Urine pH 6.5 (4.5-7.5) Urine Specific [place] 1.026 (1.000-1.030) Urine Protein NEG (NEG) Urine Glucose (UA) TRACE (NEG) Urine Ketones NEG (NEG) Urine Occult Blood NEG (NEG) Urine Nitrite NEG (NEG) Urine Bilirubin NEG (NEG) Urine Urobilinogen NEG (NEG) Urine Leukocyte Esterase TRACE (NEG) Urine WBC (Auto) 1-5 /hpf (0-5) Urine RBC (Auto) 0-4 /hpf (0-4) Urine Hyaline Casts (Auto) 1-5 /lpf (0-5) Urine Epithelial Cells (Auto) >30 /lpf (0-5) Urine Bacteria (Auto) NEG (NEG) Urine Opiates Screen NEG (NEG) Urine Methadone, Qualitative NEG (NEG) Urine Barbiturates NEG (NEG) Urine Phencyclidine (PCP) Level NEG (NEG) Ur Amphetamine/Methamphetamine NEG (NEG) MDMA (Ecstasy) Screen POS (NEG) Urine Benzodiazepines Screen NEG (NEG) Urine Cocaine Metabolite NEG (NEG) Urine Marijuana (THC) NEG (NEG) ECG Indication: toxicologic Rate (beats per minute): 79 Rhythm: normal sinus Findings: no acute ischemic change, no ectopy, other (QTC 417) ED Course 0402: The patient was evaluated in room A5. A complete history and physical exam was performed. 0630: The patient was signed out to Dr. Taveras at the change in shifts. Medical Decision Differential: Mood Disorder, Overdose, Infectious, Electrolyte Abnormality, Cardiac, Hepatic, Endocrine, Toxicologic, Neurologic, amongst other pathologies entertained. Medication Reconciliation: I attest that I have personally reviewed the patient 's current medication list. Blood Pressure Screening: Patient was found to have a slightly elevated blood pressure due to circumstances. I do not believe that the patient requires hypertension monitoring. 36 yr old male arrives with complaint of suicidal ideation in setting of worsening depression. Claims to be taking his medications as prescribed. Patient however is clearly delusional regarding multiple things. I very much feel this patient requires inpatient treatment. He is loud, somewhat abrasive, but is not aggressive towards me nor staff. Medically clear. 3 [place] down to evaluation. Impression Primary Impression: Suicidal ideation Additional Impressions: Depression Delusional disorder Scribe Attestation The scribe's documentation has been prepared under my direction and personally reviewed by me in its entirety. I confirm that the note above accurately reflects all work, treatment, procedures, and medical decision making performed by me. Departure Information Dispostion Still a Patient Referrals No Doctor, Assigned (PCP) Patient Instructions My [facility] Problem Qualifiers
[2017-02-05 04:46] LABS: ALT/SGPT 28 U/L (12-78); AST/SGOT 11 U/L (15-37); BLOOD UREA NITROGEN 14 mg/dl (7-18); BUN/CREATININE RATIO 12.3 (10-20); CALCIUM 8.8 mg/dl (8.5-10.1); CARBON DIOXIDE 28 mmol/L (21-32); CHLORIDE 102 mmol/L (98-107); GLUCOSE 220 mg/dl (70-99); POTASSIUM 4.1 mmol/L (3.5-5.1); SODIUM 136 mmol/L (136-145)
[2017-02-05 04:58] LABS: ALKALINE PHOSPHATASE 78 U/L (45-117)
[2017-02-05 05:02] LABS: ACETAMINOPHEN < 2 ug/ml (10-30)
[2017-02-05 05:47] LABS: URINE APPEARANCE CLEAR (CLEAR); URINE BILIRUBIN NEG (NEG); URINE COLOR YELLOW; URINE EPITHELIAL CELL AUTO >30 /lpf (0-5); URINE NITRITE NEG (NEG); URINE PH 6.5 (4.5-7.5); URINE SPECIFIC GRAVITY 1.026 (1.000-1.030); UROBILINOGEN NEG (NEG); ZZUR CULT IF INDIC CLEAN CATCH NO
[2017-02-05 05:52] LABS: MANUAL MICROSCOPIC REQUIRED? NO; REVIEW REQ? NO
[2017-02-05 06:14] LABS: BENZODIAZEPINE, URINE NEG (NEG); COCAINE,URINE NEG (NEG); PHENCYCLIDINE, URINE NEG (NEG)
--- NOTE | 2017-02-05 14:15 | EMERGENCY ROOM VISIT NOTE ---
ED Visit Note First contact with patient: 07:51 I received this patient in signout at the change of shift from Dr. Mayer, pending mental health placement. The patient was accepted at the [facility] and secure transportation arrangements were made.
[2017-02-05 14:37] VITALS: BP 139/80; PULSE 73; TEMP 36.7; O2SAT 98
== END 2017-02-05 16:00 ==
LOC: C.EDB 03:47 → C.EDA 16:00
DX: F32.9 Major depressive disorder, single episode, unspecified (principal); R45.851 Suicidal ideations; F22 Delusional disorders; E11.9 Type 2 diabetes mellitus without complications; I10 Essential (primary) hypertension; E03.9 Hypothyroidism, unspecified; G47.30 Sleep apnea, unspecified; Z87.440 Personal history of urinary (tract) infections; E66.01 Morbid (severe) obesity due to excess calories; Z81.8 Family history of other mental and behavioral disorders; F17.210 Nicotine dependence, cigarettes, uncomplicated; Z79.899 Other long term (current) drug therapy; Z79.4 Long term (current) use of insulin

== ENCOUNTER 2017-04-28 19:48 | Emergency (ER) | payer OTHER ==
[~2017-04-28] VITALS: Ht 188 cm; Wt 182.2 kg
[2017-04-28 20:00] VITALS: TEMP 37; Ht 188 cm; Wt 182.2 kg
--- NOTE | 2017-04-28 21:14 | DIAGNOSTIC IMAGING REPORT ---
HEAD WITHOUT CONTRAST (CT) CLINICAL HISTORY: 36 years-old Male presenting with eval for bleed. TECHNIQUE: Multidetector CT imaging of the head was performed without the use of intravenous contrast. IV contrast: None. A dose lowering technique was used consistent with the principles of ALARA (as low as reasonably achievable). COMPARISON: 12/22/2016. CT DOSE (mGy.cm): The estimated cumulative dose is 1067.06 mGycm. FINDINGS: Inspector Missile topogram: Unremarkable. Ventricles and sulci normal in size. Brain parenchyma normal in appearance with preserved cotto-white differentiation. No mass effect or midline shift. No hemorrhage or acute territorial infarct. No extra-axial fluid collection. Paranasal sinuses and mastoid air cells clear. Calvarium intact. IMPRESSION: 1. No acute intracranial pathology. Electronically signed by: Abimael Rico M.D. 04/28/2017 9:12 PM Dictated Date/Time: 04/28/2017 9:09 PM
[2017-04-28 21:15] LABS: BLOOD UREA NITROGEN 11 mg/dl (7-18); BUN/CREATININE RATIO 9.5 (10-20); CALCIUM 8.4 mg/dl (8.5-10.1); CARBON DIOXIDE 25 mmol/L (21-32); CHLORIDE 102 mmol/L (98-107); GLUCOSE 298 mg/dl (70-99); POTASSIUM 3.8 mmol/L (3.5-5.1); SODIUM 135 mmol/L (136-145)
[2017-04-28 21:26] LABS: ALKALINE PHOSPHATASE 73 U/L (45-117); ALT/SGPT 33 U/L (12-78); AST/SGOT 16 U/L (15-37)
[2017-04-28 21:36] LABS: BENZODIAZEPINE, URINE NEG (NEG); COCAINE,URINE NEG (NEG); PHENCYCLIDINE, URINE NEG (NEG)
[2017-04-28 21:40] LABS: HEMATOCRIT 42.9 % (42-52); MEAN CORPUSCULAR HEMOGLOBIN 29.9 pg (25-34); MEAN CORPUSCULAR HGB CONC 34.7 g/dl (32-36); MEAN PLATELET VOLUME 9.7 fL (7.4-10.4); PLATELET COUNT 180 K/uL (130-400); RED BLOOD COUNT 4.99 M/uL (4.7-6.1); WHITE BLOOD COUNT 7.78 K/uL (4.8-10.8)
[2017-04-28 21:42] LABS: ACETAMINOPHEN < 2 ug/ml (10-30)
[2017-04-28] MEDS ORDERED: BUPR200T2 PO (22:32)
[2017-04-28] MEDS ORDERED: CLR10 PO (22:34)
[2017-04-28] MEDS ORDERED: HALO5INJ IM (22:54)
[2017-04-28] MEDS ORDERED: ASPI81TA28 PO (22:58)
[2017-04-29] MEDS ORDERED: INSULIN DETEMIR FLEXPEN/FLEX TOUCH 100 UNITS/ML 3ML SC STA (00:24)
[2017-04-29] MEDS ORDERED: TRAZODONE HCL 50 MG TAB PO ONE (00:30)
--- NOTE | 2017-04-29 00:49 | EMERGENCY ROOM VISIT NOTE ---
History Report prepared by Anabell: Shaina Quintanilla Under the Supervision of: Dr. Casey Swenson M.D. First contact with patient: 19:58 Chief Complaint: MENTAL HEALTH EVALUATION Stated Complaint: PT EVAL, TASED History of Present Illness The patient is a 36 year old male who presents to the Emergency Room for a mental health evaluation. Per the nurses, the patient was bought in by police. They state he was found screaming on the streets saying that he wanted to kill someone and then kill himself. The patient told police that he thought about committing suicide, but had no plan. The patient states that he just wants answers to life. The patient denies drinking alcohol and taking drugs tonight. The patient reports that he did get tased in the left arm and the he fell to the ground. He denies hitting his head when he fell. He denies a headache and any pain. He denies neck pain. He states that he doesn't feel like he wants to hurt someone and suicidal. He notes that he has been taking his medication. He denies nausea, vomiting, and fever. He denies any recent illness. Source of History: patient Onset: tonight Position: other (global) Quality: other (global) Timing: other (episode) Associated Symptoms: No fevers, No headache, No nausea, No vomiting Note: The patient denies hitting his head, drinking alcohol, taking drugs, and being in pain. Review of Systems See HPI for pertinent positives & negatives. A total of 10 systems reviewed and were otherwise negative. Past Medical & Surgical Medical Problems: (1) DEPRESSIVE DISORDER NEC (2) DIAB MARGAUX WO COMPL, TYPE II OR UNSPEC TYPE, NOT UNCNTRLD (3) DKA, type 2 (4) HYPERTENSION NOS (5) Hypothyroidism (6) MORBID OBESITY (7) Sleep apnea (8) URIN TRACT INFECTION NOS Family History Depression Social History Smoking Status: Current Every Day Smoker Alcohol Use: none Drug Use: none Marital Status: other Housing Status: lives alone Occupation Status: unemployed Current/Historical Medications Scheduled Aspirin (Aspirin Ec), 81 MG PO DAILY Atorvastatin (Lipitor), 20 MG PO DAILY Bupropion (Wellbutrin Sr), 100 MG PO DAILY Bupropion (Wellbutrin Sr), 200 MG PO QAM Haloperidol Lactate (Haldol), Unknown Dose IM Mo Insulin Aspart (Novolog), 18 UNITS SQ AC Insulin Detemir (Levemir Flextouch), 40 UNITS SQ BID Lisinopril (Prinivil), 20 MG PO DAILY Loratadine (Claritin), 10 MG PO DAILY Topiramate (Topamax), 100 MG PO DAILY Scheduled PRN Trazodone Hcl (Trazodone), 150 MG PO HS PRN for Insomnia Allergies Coded Allergies: Wheat (Verified Allergy, Severe, STATES IT MAKES HIM GO INSANE, 04/28/17) Penicillins (Verified Allergy, Unknown, 04/28/17) Physical Exam Vital Signs Date Time Temp Pulse Resp B/P (MAP) Pulse Ox O2 Delivery O2 Flow Rate FiO2 04/28/17 21:57 92 18 138/79 98 Room Air 04/28/17 20:00 37.0 95 18 162/94 97 Room Air Physical Exam Constitutional: Vital signs reviewed. Eyes: Pupils are equal round reactive to light. Conjunctiva are noninjected. ENT: Pharynx is clear without erythema or exudate. Mucous membranes are moist. Neck supple without meningeal signs. Respiratory: Clear to auscultation bilaterally. Breath sounds are equal bilaterally. Cardiovascular: Regular rate and rhythm. No rubs or gallops. GI: Soft, nondistended and nontender. Bowel sounds are present. Musculoskeletal: No peripheral edema. No lower extremity tenderness. Integumentary: No cyanosis. No puncture wounds on left arm. No signs of . Neurological: The patient is awake and alert. No focal deficits. Psychiatric: Normal affect. Medical Decision & Procedures ER Provider Diagnostic Interpretation: Radiology results as stated below per my review and the radiologist's interpretation: HEAD WITHOUT CONTRAST (CT) CLINICAL HISTORY: 36 years-old Male presenting with eval for bleed. TECHNIQUE: Multidetector CT imaging of the head was performed without the use of intravenous contrast. IV contrast: None. A dose lowering technique was used consistent with the principles of ALARA (as low as reasonably achievable). COMPARISON: 12/22/2016. CT DOSE (mGy.cm): The estimated cumulative dose is 1067.06 mGycm. FINDINGS: Negative Assembler topogram: Unremarkable. Ventricles and sulci normal in size. Brain parenchyma normal in appearance with preserved cotto-white differentiation. No mass effect or midline shift. No hemorrhage or acute territorial infarct. No extra-axial fluid collection. Paranasal sinuses and mastoid air cells clear. Calvarium intact. IMPRESSION: 1. No acute intracranial pathology. Electronically signed by: Abimael Rico M.D. 04/28/2017 9:12 PM Dictated Date/Time: 04/28/2017 9:09 PM Laboratory Results 04/28/17 20:21 04/28/17 20:21 Test 04/28/17 20:21 04/28/17 20:40 Red Blood Count 4.99 M/uL (4.7-6.1) Mean Corpuscular Volume 86.0 fL (80-100) Mean Corpuscular Hemoglobin 29.9 pg (25-34) Mean Corpuscular Hemoglobin Concent 34.7 g/dl (32-36) RDW Standard Deviation 42.9 fL (36.4-46.3) RDW Coefficient of Variation 13.8 % (11.5-14.5) Mean Platelet Volume 9.7 fL (7.4-10.4) Anion Gap 8.0 mmol/L (3-11) Est Creatinine Clear Calc Drug Dose 144.3 ml/min Estimated GFR () 88.4 Estimated GFR (Non- 76.3 BUN/Creatinine Ratio 9.5 (10-20) Calcium Level 8.4 mg/dl (8.5-10.1) Total Bilirubin 0.4 mg/dl (0.2-1) Direct Bilirubin 0.1 mg/dl (0-0.2) Aspartate Amino Transf (AST/SGOT) 16 U/L (15-37) Alanine Aminotransferase (ALT/SGPT) 33 U/L (12-78) Alkaline Phosphatase 73 U/L (45-117) Total Creatine Kinase 213 U/L (39-308) Troponin I < 0.015 ng/ml (0-0.045) Total Protein 7.1 gm/dl (6.4-8.2) Albumin 3.4 gm/dl (3.4-5.0) Thyroid Stimulating Hormone (TSH) 1.760 uIu/ml (0.300-4.500) Salicylates Level 2.3 mg/dl (2.8-20) Acetaminophen Level < 2 ug/ml (10-30) Ethyl Alcohol mg/dL < 3.0 mg/dl (0-3) Urine Opiates Screen NEG (NEG) Urine Methadone, Qualitative NEG (NEG) Urine Barbiturates NEG (NEG) Urine Phencyclidine (PCP) Level NEG (NEG) Ur Amphetamine/Methamphetamine NEG (NEG) MDMA (Ecstasy) Screen POS (NEG) Urine Benzodiazepines Screen NEG (NEG) Urine Cocaine Metabolite NEG (NEG) Urine Marijuana (THC) NEG (NEG) Laboratory results as reviewed by me. ECG Indication: other (electrical injury) Rate (beats per minute): 94 Rhythm: normal sinus Findings: 1st degree AV block, no acute ischemic change, no ectopy Comparison ECG Date: February 05, 2017 Change: ID interval was 198 milliseconds. ED Course 2011: The patient was evaluated in room A5. A complete history and physical exam was performed. 2205: The patient is medically clear and the bed search will begin. 0023: There are no beds available at this time so the bed search will stop until tomorrow. I am going to order him his nightly medications. 0024: Ordered Insulin Detemir 40 units SC. 0030: Ordered Desyrel Tab 150 mg PO. 0031: The patient was signed out to Dr. Mayer at change of shift. Medical Decision This is a 36-year-old male who presents for mental health evaluation. I did perform a limited focused review of portions of the patient's old chart on the electronic medical record. The patient was seen here February 05 for mental health reasons and went to the [facility]. I did evaluate the patient as noted above. The patient is presenting for mental health evaluation. He was threatening to kill somebody and then kill himself. He had to be tasered by the police. He denies any injuries or complaints. He states he currently does not want to hurt anybody. I did order and personally review the patient's 12-lead EKG as described above. He does have a first degree AV block but I do not believe this is likely secondary to the electrical injury. I did order and review the patient's blood work as noted in the electronic medical record. There is no signs of rhabdomyolysis or kidney damage. He is hyperglycemic. I did order a CT of the head. I did review the images myself as well as the radiology report as described above. There is no evidence of acute injury. I did treat the patient with his trazodone and insulin subcutaneous. The patient is willing to sign in voluntarily for inpatient psychiatric care. He is awaiting placement in a psychiatric facility. The patient was signed out to Dr. Mayer. Head Trauma GCS Score: 15 Medication Reconcilliation Current Medication List: was personally reviewed by me Blood Pressure Screening Patient's blood pressure: Elevated blood pressure Blood pressure disposition: Referred to PCP Impression Primary Impression: Mood disorder Additional Impressions: Homicidal ideation Suicidal ideation Hyperglycemia Electric shock caused by Taser Scribe Attestation The scribe's documentation has been prepared under my direct and personally reviewed by me in its entirety. I confirm that the note above accurately reflects all work, treatment, procedures, and medical decision making performed by me. Departure Information Dispostion Still a Patient Referrals No Doctor, Assigned (PCP) Patient Instructions My [facility] Health Problem Qualifiers Additional Impressions: Electric shock caused by Taser Encounter type: initial encounter Qualified Codes: T75.4XXA - Electrocution , initial encounter; W86.8XXA - Exposure to other electric current, initial encounter
--- NOTE | 2017-04-29 06:29 | EMERGENCY ROOM VISIT NOTE ---
ED Visit Note First contact with patient: 02:08 36 yr old male arrives for evaluation of mental health disorder last evenign after threatening to kill people leading to him being tasered by police. Long history of mental health problems. Initially 302 petition though willing to sign in voluntarily. Intiailly evaluated and medically cleared by Dr Swenson who signed him out to me awaiting placement. Accepted to [facility], however will not be leaving for next 8+ hours thus signed out to Dr Mosher for monitoring. I ordered his extensive list of morning medication. Due to unknown Haldol dosing every Saturday I was unable to order this.
[2017-04-29] MEDS: INSULIN ASPART 100 UNITS/ML 3 ML PEN SC SCH ×2 (07:51→11:47)
[2017-04-29] MEDS ORDERED: INSULIN DETEMIR FLEXPEN/FLEX TOUCH 100 UNITS/ML 3ML SC SCH (09:00)
[2017-04-29] MEDS ORDERED: ASPIRIN 81 MG CHEW PO SCH (09:00)
[2017-04-29] MEDS ORDERED: TOPIRAMATE 100 MG TAB PO SCH (09:00)
[2017-04-29] MEDS ORDERED: LORATADINE 10 MG TAB PO ONE (09:00)
[2017-04-29] MEDS ORDERED: LISINOPRIL 20 MG TAB PO SCH (09:00)
[2017-04-29] MEDS ORDERED: ATORVASTATIN 20 MG TAB PO SCH (09:00)
[2017-04-29] MEDS ORDERED: BuPROPion SR 100 MG TABCR PO SCH (09:00)
[2017-04-29 12:45] VITALS: BP 131/89; PULSE 77; O2SAT 98
--- NOTE | 2017-04-29 14:14 | EMERGENCY ROOM VISIT NOTE ---
ED Visit Note First contact with patient: 06:40 The patient remained calm during his emergency department stay. He was transported to [facility].
== END 2017-04-29 12:56 ==
LOC: EDBD 19:48 → C.EDA 19:51
DX: F39 Unspecified mood [affective] disorder (principal); R45.851 Suicidal ideations; R45.850 Homicidal ideations; T75.4XXA Electrocution, initial encounter; W86.8XXA Exposure to other electric current, initial encounter; Y35.893A Legal intervention involving other specified means, suspect injured, initial encounter; E11.65 Type 2 diabetes mellitus with hyperglycemia; I10 Essential (primary) hypertension; E03.9 Hypothyroidism, unspecified; E66.01 Morbid (severe) obesity due to excess calories; G47.30 Sleep apnea, unspecified; Z87.440 Personal history of urinary (tract) infections; Z81.8 Family history of other mental and behavioral disorders; F17.210 Nicotine dependence, cigarettes, uncomplicated; Z79.82 Long term (current) use of aspirin; Z79.4 Long term (current) use of insulin; Z79.899 Other long term (current) drug therapy

== ENCOUNTER 2017-09-14 22:17 | Emergency (ER) | payer OTHER ==
[~2017-09-14] VITALS: Ht 188 cm; Wt 190.0 kg
[~2017-09-14 22:17] MED LIST changes: +ASPI81TA28 PO; +BUPR200T2 PO; +CLR10 PO; -HALO2TAB PO; +HALO5INJ IM; -[UNRECOGNIZED DRUG - REMARK] PO
[2017-09-14 22:27] VITALS: TEMP 36.7; Ht 188 cm; Wt 190.0 kg
[2017-09-14] MEDS ORDERED: KETOROLAC TROMETHAMINE 15 MG/ML VIAL IM STA (23:12)
[2017-09-14] MEDS ORDERED: CYCLOBENZAPRINE HCL 10 MG TAB PO STA (23:12)
[2017-09-14] MEDS ORDERED: CYCL5TAB PO (23:16)
[2017-09-14] MEDS ORDERED: IBUP-1451 PO (23:17)
[2017-09-14] MEDS ORDERED: KETOROLAC TROMETHAMINE 30 MG/ML VIAL ONE (23:20)
--- NOTE | 2017-09-14 23:20 | EMERGENCY ROOM VISIT NOTE ---
History Report prepared by Anabell: Licha Whyte Under the Supervision of: Dr. Domenic Rodríguez M.D. First contact with patient: 23:06 Chief Complaint: BACK PAIN Stated Complaint: BACK PAIN History of Present Illness The patient is a 36 year old male who presents to the Emergency Room with complaints of constant lower back pain beginning this afternoon around 2 pm. He reports his pain started when he was laying down in his bed when his pain began. He denies any heamturia, dysuria, urinary retention or urinary incontinence. The patient denies any recent falls or injuries. Patient states this pain feels like a pulled muscle. No radiation of the pain. Pain is mild in nature. Source of History: patient Onset: 2 pm Position: back (lower) Quality: other (pain) Timing: constant Associated Symptoms: + back pain, No urinary symptoms Review of Systems See HPI for pertinent positives and negatives. A total of ten systems were reviewed and were otherwise negative. Past Medical & Surgical Medical Problems: (1) DEPRESSIVE DISORDER NEC (2) DIAB MARGAUX WO COMPL, TYPE II OR UNSPEC TYPE, NOT UNCNTRLD (3) DKA, type 2 (4) HYPERTENSION NOS (5) Hypothyroidism (6) MORBID OBESITY (7) Sleep apnea (8) URIN TRACT INFECTION NOS Family History Depression Social History Smoking Status: Current Every Day Smoker Alcohol Use: none Drug Use: none Marital Status: other Housing Status: lives alone Occupation Status: unemployed Current/Historical Medications Scheduled Aspirin (Aspirin Ec), 81 MG PO DAILY Atorvastatin (Lipitor), 20 MG PO DAILY Bupropion (Wellbutrin Sr), 100 MG PO DAILY Bupropion (Wellbutrin Sr), 200 MG PO QAM Haloperidol Lactate (Haldol), Unknown Dose IM Mo Insulin Aspart (Novolog), 18 UNITS SQ AC Insulin Detemir (Levemir Flextouch), 40 UNITS SQ BID Lisinopril (Prinivil), 20 MG PO DAILY Loratadine (Claritin), 10 MG PO DAILY Topiramate (Topamax), 100 MG PO DAILY Scheduled PRN Cyclobenzaprine Hcl (Flexeril), 5 MG PO TID PRN for Pain Ibuprofen Tab (Motrin), 800 MG PO Q8H PRN for Pain Trazodone Hcl (Trazodone), 150 MG PO HS PRN for Insomnia Allergies Coded Allergies: Wheat (Verified Allergy, Severe, STATES IT MAKES HIM GO INSANE, 04/28/17) Penicillins (Verified Allergy, Unknown, 04/28/17) Physical Exam Vital Signs Date Time Temp Pulse Resp B/P (MAP) Pulse Ox O2 Delivery O2 Flow Rate FiO2 09/14/17 23:31 80 16 143/84 98 09/14/17 22:27 36.7 73 20 132/90 97 Room Air Physical Exam Physical Exam GENERAL: He is oriented to person, place, and time. He appears well-developed and well-nourished. He does not appear distressed. ____ HENT: Exam performed. Head: Normocephalic and atraumatic. Right Ear: External ear normal. No mastoid tenderness. Left Ear: External ear normal. No mastoid tenderness. Mouth/Throat: The oropharynx is clear and moist. No trismus in the jaw. No dental abscesses or uvula swelling. No oropharyngeal exudate or tonsillar abscesses. ____ EYES: Conjunctivae and EOM are normal. Pupils are equal, round, and reactive to light. Right eye exhibits no discharge. Left eye exhibits no discharge. No scleral icterus. ____ NECK: Normal range of motion. Neck supple. No JVD present. No spinous process tenderness present. No carotid bruit present. No rigidity. No tracheal deviation and normal range of motion present. No Brudzinski's sign and no Kernig 's sign noted. ____ CV: Normal rate, regular rhythm, normal heart sounds and intact distal pulses. There is no peripheral edema. Palpable radial pulses bue. ____ PULM/CHEST: Effort normal and breath sounds normal. No respiratory distress. No stridor. He has no wheezes. He has no rales. Chest Wall: He exhibits no tenderness. ____ ABD: The abdomen is soft and obese. Bowel sounds are normal. He has no distension. No mass is present. There is no tenderness. There is no rebound, no guarding, no Nettles's sign and no tenderness at McBurney's point. Rovsig negative MUSC/SKEL: No C, T, or L spine tenderness pain on palpation causing spams and reproducing chief complaint of right lumbar paraspinal muscles. Normal range of motion. There is no peripheral edema, tenderness or deformity. LYMPH: No cervical adenopathy. ____ NEURO: He is alert and oriented to person, place, and time. He has normal strength. No cranial nerve deficit or sensory deficit. Coordination and gait normal. GCS eye subscore is 4. GCS verbal subscore is 5. GCS motor subscore is 6. Cerebellar tests wnl. No saddle anesthesia or paraesthesia. SKIN: Skin is warm and dry. He is not diaphoretic. ____ PSYCH: He has a normal mood and affect. His behavior is normal. Judgment and thought content normal. ____ Medical Decision & Procedures Medications Administered Medications (Trade) Dose Ordered Sig/Paulette Route Start Time Stop Time Status Last Admin Dose Admin Ketorolac Tromethamine (Toradol Inj) 15 mg NOW STAT IM 09/14/17 23:12 09/14/17 23:15 DC 09/14/17 23:31 15 MG Cyclobenzaprine HCl (Flexeril Tab) 5 mg NOW STAT PO 09/14/17 23:12 09/14/17 23:15 DC 09/14/17 23:30 5 MG ED Course 2307: The patient was evaluated in room A2. A complete history and physical exam was performed. 2312: Ordered Flexeril Tab 5 mg PO, Toradol Inj 15 mg IM. 2320: Ordered Toradol Inj 30 mg .ROUTE. 2327: I reevaluated the patient. Discussed results and discharge instructions: He verbalized understanding and agreement. The patient is ready for discharge. Medical Decision Vitals stable. HPI and physical exam are not concerning for cord compression, no emergent imaging warranted, analgesic given in ED. Analgesic and muscle relaxer given to take home. Family member is at bedside and is agreeable to drive the patient home. DISCHARGE - Plan of care discussed with family and questions answered. The family was given both verbal and printed discharge instructions. The family verbalized understanding and ability to comply. The family is to seek outpatient follow up as noted in the discharge instructions. The family verbalized understanding and ability to comply. The family is discharged in stable condition. The family was instructed to return for worsening symptoms. Medication Reconcilliation Current Medication List: was personally reviewed by me Blood Pressure Screening Patient's blood pressure: Normal blood pressure Impression Primary Impression: Back pain Scribe Attestation The scribe's documentation has been prepared under my direction and personally reviewed by me in its entirety. I confirm that the note above accurately reflects all work, treatment, procedures, and medical decision making performed by me. The chart was completed utilizing [employer] Speech voice recognition software. Grammatical errors, random word insertions, pronoun errors, and incomplete sentences are an occasional consequence of this system due to software limitations, ambient noise, and hardware issues. Any formal questions or concerns about the content, text, or information contained within the body of this dictation should be directly addressed to the physician for clarification. Departure Information Dispostion Home / Self-Care Prescriptions Ibuprofen Tab (MOTRIN) 800 Mg Tab 800 MG PO Q8H Y for Pain, #30 TAB Prov: Domenic Rodríguez M.D. 09/14/17 Cyclobenzaprine Hcl (FLEXERIL) 5 Mg Tab 5 MG PO TID Y for Pain, #21 TAB PRN Prov: Domenic Rodríguez M.D. 09/14/17 Referrals Hope Tineo M.D. (PCP) Forms HOME CARE DOCUMENTATION FORM, IMPORTANT VISIT INFORMATION Patient Instructions Back Pain - [facility], [facility] Additional Instructions Return to the emergency department if you develop blood in urine, fever greater than 100.4, urinate on herself, inability to urinate,, or numbness between her legs. Problem Qualifiers Primary Impression: Back pain Back pain location: low back pain Chronicity: acute Back pain laterality: unspecified Sciatica presence: without sciatica Qualified Codes: M54.5 - Low back pain
[2017-09-14 23:31] VITALS: BP 143/84; PULSE 80; O2SAT 98
== END 2017-09-14 23:32 | disposition home or self-care (01) ==
LOC: C.EDB 22:19 → C.EDA 23:32
DX: M54.5 Low back pain (principal); F32.9 Major depressive disorder, single episode, unspecified; E11.9 Type 2 diabetes mellitus without complications; E87.2 Acidosis; I10 Essential (primary) hypertension; E03.9 Hypothyroidism, unspecified; E66.01 Morbid (severe) obesity due to excess calories; G47.30 Sleep apnea, unspecified; F17.200 Nicotine dependence, unspecified, uncomplicated; Z79.82 Long term (current) use of aspirin; Z79.4 Long term (current) use of insulin; Z88.0 Allergy status to penicillin; Z91.018 Allergy to other foods

== ENCOUNTER 2017-10-25 21:35 | Emergency (ER) | payer OTHER ==
[~2017-10-25] VITALS: Ht 188 cm; Wt 186.0 kg
[~2017-10-25 21:35] MED LIST changes: +IBUP-1451 PO
[2017-10-25 21:47] VITALS: TEMP 36.8; Ht 188 cm; Wt 186.0 kg
[2017-10-25] MEDS ORDERED: INSULIN HUMAN REGULAR SC STA (21:57)
[2017-10-25 22:10] LABS: BASO % 0.2 %; BASO ABS # 0.02 K/uL (0-0.2); EOS % 0.8 %; EOS ABS # 0.07 K/uL (0-0.5); HEMATOCRIT 46.3 % (42-52); HEMOGLOBIN 16.3 g/dL (14.0-18.0); IG# 0.03 K/uL (0.00-0.02); LYMPH % 30.6 %; LYMPH ABS # 2.79 K/uL (1.2-3.4); MEAN CELL VOLUME 85.7 fL (80-100); MEAN CORPUSCULAR HEMOGLOBIN 30.2 pg (25-34); MEAN CORPUSCULAR HGB CONC 35.2 g/dl (32-36); MEAN PLATELET VOLUME 9.6 fL (7.4-10.4); MONO ABS # 0.46 K/uL (0.11-0.59); NEUT % 63.1 %; NEUT ABS # 5.74 K/uL (1.4-6.5); PLATELET COUNT 211 K/uL (130-400); RED CELL DISTRIBUTION WIDTH CV 13.3 % (11.5-14.5); RED CELL DISTRIBUTION WIDTH SD 41.5 fL (36.4-46.3); WHITE BLOOD COUNT 9.11 K/uL (4.8-10.8)
[2017-10-25 22:29] LABS: CREATININE 1.21 mg/dl (0.60-1.40); POTASSIUM 3.8 mmol/L (3.5-5.1)
[2017-10-25] MEDS ORDERED: NovoLIN-R INSULIN PER UNIT CHARGE ONE (22:33)
[2017-10-25 22:40] LABS: TOTAL PROTEIN 8.2 gm/dl (6.4-8.2)
[2017-10-26] MEDS ORDERED: INSULIN HUMAN REGULAR SC STA ×2 (00:06→14:07)
[2017-10-26] MEDS ORDERED: INSULIN DETEMIR FLEXPEN/FLEX TOUCH 100 UNITS/ML 3ML SC STA (00:10)
[2017-10-26] MEDS ORDERED: NovoLIN-R INSULIN PER UNIT CHARGE ONE ×2 (00:12→00:14)
[2017-10-26] MEDS ORDERED: TRAZODONE HCL 100 MG TAB PO PRN (00:15)
[2017-10-26] MEDS ORDERED: TOPI50TA16 PO (00:24)
[2017-10-26] MEDS ORDERED: ARIP1TAB8 PO (00:25)
[2017-10-26] MEDS ORDERED: LIRA18IN SQ. (00:25)
--- NOTE | 2017-10-26 00:46 | EMERGENCY ROOM VISIT NOTE ---
History Report prepared by Anabell: Terrence Ojeda Under the Supervision of: Dr. Pratik Richardson M.D. First contact with patient: 21:50 Chief Complaint: MENTAL HEALTH EVALUATION Stated Complaint: MENTAL HEALTH History of Present Illness The patient is a 36 year old male who presents to the Emergency Room for a mental health evaluation. Per police, the patient was found standing in traffic and yelling at the cars to run him over. The patient states he has had constant suicidal ideations for a while now. He denies hearing voices and homicidal ideations. The patient notes he does not know if his blood sugar is under control, and he has not eaten dinner yet. Source of History: patient Onset: a while ago Quality: other (SI) Timing: constant Note: Denies: hearing thoughts, HI Review of Systems See HPI for pertinent positives & negatives. A total of 10 systems reviewed and were otherwise negative. Past Medical & Surgical Medical Problems: (1) DEPRESSIVE DISORDER NEC (2) DIAB MARGAUX WO COMPL, TYPE II OR UNSPEC TYPE, NOT UNCNTRLD (3) DKA, type 2 (4) HYPERTENSION NOS (5) Hypothyroidism (6) MORBID OBESITY (7) Sleep apnea (8) URIN TRACT INFECTION NOS Family History Depression Social History Smoking Status: Current Every Day Smoker Alcohol Use: none Drug Use: none Marital Status: other Housing Status: lives alone Occupation Status: unemployed Current/Historical Medications Scheduled Aripiprazole (Abilify), 10 MG PO DAILY Aspirin (Aspirin Ec), 81 MG PO DAILY Atorvastatin (Lipitor), 20 MG PO DAILY Bupropion (Wellbutrin Sr), 100 MG PO QAM Bupropion (Wellbutrin Sr), 200 MG PO QAM Haloperidol Lactate (Haldol), 1 DOSE IM Mo Insulin Aspart (Novolog), 18 UNITS SQ AC Insulin Detemir (Levemir Flextouch), 40 UNITS SQ BID Liraglutide (Victoza), 1 DOSE SQ. DAILY Lisinopril (Prinivil), 20 MG PO DAILY Topiramate (Topamax), 100 MG PO HS Topiramate (Topamax), 50 MG PO QAM Scheduled PRN Trazodone Hcl (Trazodone), 100 MG PO HS PRN for Insomnia Allergies Coded Allergies: Wheat (Verified Allergy, Severe, STATES IT MAKES HIM GO INSANE, 10/26/17) Penicillins (Verified Allergy, Unknown, 10/26/17) Physical Exam Vital Signs Date Time Temp Pulse Resp B/P (MAP) Pulse Ox O2 Delivery O2 Flow Rate FiO2 10/25/17 23:30 76 18 119/77 97 Room Air 10/25/17 21:47 36.8 88 18 179/102 99 Room Air Physical Exam GENERAL: Awake, alert, well-appearing, in no acute distress HENT: Normocephalic, atraumatic. Oropharynx unremarkable. EYES: Normal conjunctiva. Sclera non-icteric. NECK: Supple. No nuchal rigidity. FROM. No JVD. RESPIRATORY: Clear to auscultation. CARDIAC: Regular rate, normal rhythm. Extremities warm and well perfused. Pulses equal. ABDOMEN: Soft, non-distended. No tenderness to palpation. No rebound or guarding. No masses. RECTAL: Deferred. MUSCULOSKELETAL: Chest examination reveals no tenderness. The back is symmetrical on inspection without obvious abnormality. There is no CVA tenderness to palpation. No joint edema. LOWER EXTREMITIES: Calves are equal size bilaterally and non-tender. No edema. No discoloration. NEURO: Normal sensorium. No sensory or motor deficits noted. SKIN: No rash or jaundice noted. PSYCH: Positive SI. Negative HI. Medical Decision & Procedures Laboratory Results 10/25/17 21:42 Red Blood Count 5.40, Mean Corpuscular Volume 85.7, Mean Corpuscular Hemoglobin 30.2, Mean Corpuscular Hemoglobin Concent 35.2, Mean Platelet Volume 9.6, Neutrophils (%) (Auto) 63.1, Lymphocytes (%) (Auto) 30.6, Monocytes (%) (Auto) 5.0, Eosinophils (%) (Auto) 0.8, Basophils (%) (Auto) 0.2, Neutrophils # (Auto) 5.74, Lymphocytes # (Auto) 2.79, Monocytes # (Auto) 0.46, Eosinophils # (Auto) 0.07, Basophils # (Auto) 0.02 10/25/17 21:42 Test 10/25/17 21:42 10/25/17 21:45 10/26/17 00:04 White Blood Count 9.11 K/uL (4.8-10.8) Red Blood Count 5.40 M/uL (4.7-6.1) Hemoglobin 16.3 g/dL (14.0-18.0) Hematocrit 46.3 % (42-52) Mean Corpuscular Volume 85.7 fL (80-100) Mean Corpuscular Hemoglobin 30.2 pg (25-34) Mean Corpuscular Hemoglobin Concent 35.2 g/dl (32-36) Platelet Count 211 K/uL (130-400) Mean Platelet Volume 9.6 fL (7.4-10.4) Neutrophils (%) (Auto) 63.1 % Lymphocytes (%) (Auto) 30.6 % Monocytes (%) (Auto) 5.0 % Eosinophils (%) (Auto) 0.8 % Basophils (%) (Auto) 0.2 % Neutrophils # (Auto) 5.74 K/uL (1.4-6.5) Lymphocytes # (Auto) 2.79 K/uL (1.2-3.4) Monocytes # (Auto) 0.46 K/uL (0.11-0.59) Eosinophils # (Auto) 0.07 K/uL (0-0.5) Basophils # (Auto) 0.02 K/uL (0-0.2) RDW Standard Deviation 41.5 fL (36.4-46.3) RDW Coefficient of Variation 13.3 % (11.5-14.5) Immature Granulocyte % (Auto) 0.3 % Immature Granulocyte # (Auto) 0.03 K/uL (0.00-0.02) Anion Gap 4.0 mmol/L (3-11) Est Creatinine Clear Calc Drug Dose 144.9 ml/min Estimated GFR () 87.5 Estimated GFR (Non- 75.5 BUN/Creatinine Ratio 9.0 (10-20) Calcium Level 9.0 mg/dl (8.5-10.1) Total Bilirubin 0.5 mg/dl (0.2-1) Direct Bilirubin 0.1 mg/dl (0-0.2) Aspartate Amino Transf (AST/SGOT) 19 U/L (15-37) Alanine Aminotransferase (ALT/SGPT) 44 U/L (12-78) Alkaline Phosphatase 89 U/L (45-117) Total Protein 8.2 gm/dl (6.4-8.2) Albumin 4.0 gm/dl (3.4-5.0) Thyroid Stimulating Hormone (TSH) 2.740 uIu/ml (0.300-4.500) Ethyl Alcohol mg/dL < 3.0 mg/dl (0-3) Urine Color YELLOW Urine Appearance CLEAR (CLEAR) Urine pH 6.0 (4.5-7.5) Urine Specific [place] 1.031 (1.000-1.030) Urine Protein NEG (NEG) Urine Glucose (UA) 3+ (NEG) Urine Ketones NEG (NEG) Urine Occult Blood NEG (NEG) Urine Nitrite NEG (NEG) Urine Bilirubin NEG (NEG) Urine Urobilinogen NEG (NEG) Urine Leukocyte Esterase NEG (NEG) Urine Opiates Screen NEG (NEG) Urine Methadone, Qualitative NEG (NEG) Urine Barbiturates NEG (NEG) Urine Phencyclidine (PCP) Level NEG (NEG) Ur Amphetamine/Methamphetamine NEG (NEG) MDMA (Ecstasy) Screen POS (NEG) Urine Benzodiazepines Screen NEG (NEG) Urine Cocaine Metabolite NEG (NEG) Urine Marijuana (THC) NEG (NEG) Bedside Glucose 305 mg/dl (70-99) Labs reviewed by ED physician. Medications Administered Medications (Trade) Dose Ordered Sig/Paulette Route Start Time Stop Time Status Last Admin Dose Admin Insulin Human Regular (novoLIN-R) 18 units NOW STAT [place] 10/25/17 21:57 10/25/17 21:58 DC 10/25/17 22:35 18 UNITS Insulin Human Regular (novoLIN-R) 18 units NOW STAT NJ 10/26/17 00:06 10/26/17 00:07 DC 10/26/17 00:16 18 UNITS Insulin Detemir (Levemir Flexpen/ FlexTouch) 40 units NOW STAT NJ 10/26/17 00:10 10/26/17 00:11 DC 10/26/17 00:51 40 UNITS Trazodone HCl (Desyrel Tab) 150 mg STK-MED ONCE .ROUTE 10/26/17 00:49 10/26/17 00:50 DC 10/26/17 00:52 150 MG ED Course 2150: Past medical records reviewed. The patient was evaluated in room A03. A complete history and physical examination was performed. 2156: Ordered Insulin Human Regular 18 units SC 2232: Ordered Insulin Human Regular 18 units .ROUTE 2248: The patient is medically cleared. He is being evaluated by psychiatric case liaison. A bed search is being conducted. 0006: Ordered Insulin Detemir 40 units SC 0014: Ordered Insulin Human Regular 18 units .ROUTE 0015: Ordered Trazodone HCl 150 mg PO 0900: Ordered Lipitor Tab 20mg PO, Bupropion HCl 100mg PO, Insulin Detemir 40 units SC, Topiramate 100mg PO, Lisinopril 20mg PO Medical Decision Etiologies such as mood disorder, infection, hypoglycemia, electrolyte abnormalities, cardiac sources, intracerebral event, toxicologic, neurologic, as well as others were entertained. This is a 36-year-old male brought to the emergency department under 302 petition by police officers. The patient was running into traffic trying to kill himself. He was pulled out by police officers and brought to the emergency department. The patient does have a history of diabetes and his blood sugar is slightly elevated. He was given insulin here in the emergency department and the patient's normal medications were ordered. He was medically cleared by me. I do feel that the patient can have a psychiatric evaluation however bed search was suspended due to no beds being present. His medications were ordered and the patient was signed out to Dr. Sara Taveras change of shift. Medication Reconcilliation Current Medication List: was personally reviewed by me Blood Pressure Screening Patient's blood pressure: Normal blood pressure Blood pressure disposition: Did not require urgent referral Impression Primary Impression: Suicidal ideation Additional Impression: Mood disorder Scribe Attestation The scribe's documentation has been prepared under my direction and personally reviewed by me in its entirety. I confirm that the note above accurately reflects all work, treatment, procedures, and medical decision making performed by me. Departure Information Dispostion Still a Patient Referrals Hope Tineo M.D. (PCP) Patient Instructions My [facility] Problem Qualifiers
[2017-10-26] MEDS ORDERED: TRAZODONE HCL 50 MG TAB ONE (00:49)
--- NOTE | 2017-10-26 05:54 | EMERGENCY ROOM VISIT NOTE ---
ED Visit Note First contact with patient: 02:32 I received this patient in signout at the change of shift from Dr. Pratik Richardson, awaiting a mental health bed search. The patient was brought to the emergency department on a 302 by [place] police. Patient was apparently found running into traffic and stated he was attempting to kill himself. A bed search is currently suspended. Case has been signed out to Dr. Snaders at the change of shift pending final disposition.
--- NOTE | 2017-10-26 07:29 | EMERGENCY ROOM VISIT NOTE ---
ED Visit Note First contact with patient: 07:25 The patient was taken in sign out from Dr. Sara Taveras at the change of shift. Please see that note for details. The patient was pending psychiatric evaluation. The patient was accepted at [facility]. He was given his sliding scale insulin with lunch and an additional 10 units of regular insulin for his hyperglycemia. The patient was reassessed. He is doing well. He will follow- up as an outpatient after discharge.
[2017-10-26] MEDS ORDERED: ATORVASTATIN 20 MG TAB PO SCH (09:00)
[2017-10-26] MEDS ORDERED: TOPIRAMATE 100 MG TAB PO SCH (09:00)
[2017-10-26] MEDS ORDERED: LISINOPRIL 20 MG TAB PO SCH (09:00)
[2017-10-26] MEDS ORDERED: INSULIN DETEMIR FLEXPEN/FLEX TOUCH 100 UNITS/ML 3ML SC SCH (09:00)
[2017-10-26] MEDS ORDERED: BuPROPion SR 100 MG TABCR PO SCH (09:00)
[2017-10-26] MEDS ORDERED: BuPROPion SR 100 MG TABCR PO STA (09:24)
[2017-10-26] MEDS ORDERED: INSULIN ASPART 100 UNITS/ML 3 ML PEN SC STA (11:41)
[2017-10-26] MEDS ORDERED: NovoLIN-R INSULIN PER UNIT CHARGE SQ STA (14:09)
[2017-10-26] MEDS ORDERED: INSULIN HUMAN REGULAR IV BOLUS 10 UNIT in SYRINGE 0 ML IV STA (14:17)
[2017-10-26] MEDS ORDERED: INSULIN HUMAN REGULAR SQ STA (14:23)
[2017-10-26 14:28] VITALS: BP 140/80; PULSE 83; O2SAT 95
[2017-10-26] MEDS ORDERED: GLUCOSE 10 TABS/TUBE PO PRN (14:30)
[2017-10-26] MEDS ORDERED: GLUCOSE 40% GEL 15 GM TUBE PO PRN (14:30)
[2017-10-26] MEDS ORDERED: DEXTROSE 50% 50 ML SYR IV PRN (14:30)
[2017-10-26] MEDS ORDERED: GLUCAGON FOR INJ 1 MG VIAL SQ PRN (14:30)
== END 2017-10-26 14:30 | disposition short-term general hospital (02) ==
LOC: EDBD 21:35 → C.EDA 21:37
DX: R45.851 Suicidal ideations (principal); F39 Unspecified mood [affective] disorder; E11.65 Type 2 diabetes mellitus with hyperglycemia; I10 Essential (primary) hypertension; F17.200 Nicotine dependence, unspecified, uncomplicated; Z87.440 Personal history of urinary (tract) infections; Z81.8 Family history of other mental and behavioral disorders; Z79.82 Long term (current) use of aspirin; Z88.0 Allergy status to penicillin; Z91.018 Allergy to other foods; Z79.4 Long term (current) use of insulin; Z79.899 Other long term (current) drug therapy